=== PATIENT | male | born 1960 | race Caucasian/White ===

== ENCOUNTER → 2023-08-07 | Outpatient (CLI) | payer OTHER, SELFPAY ==
[2023-08-07 18:38] LABS: Anion Gap 5 (5-15); BUN 17 mg/dL (7-18); BUN/Creat Ratio 18.3 RATIO (10-20); Calcium,Total 9.2 mg/dL (8.5-10.1); Chloride 107 mmol/L (98-107); Cholesterol 154 mg/dL (200); Creatinine, Serum 0.93 mg/dL (0.70-1.30); EST Glomerular Filtration Rate 88 mL/min (>60); Est Glom Filt Rate - Afr Amer 106 mL/min (>60); Glucose 96 mg/dL (74-106); High Density Lipoprotein 46 mg/dL; PSA,Total - Annual Screen 1.83 ng/mL (0.00-4.00); Sodium Level 141 mmol/L (136-145); Triglycerides 180 mg/dL; Very Low Density Lipoprotein 36 mg/dL (5-40)
== END | disposition home or self-care (01) ==
LOC: MFPLAB 15:39
PROVIDERS: PCP Family Medicine; Visit Provider Family Medicine
DX: Z00.00 Encounter for general adult medical examination without abnormal findings (principal)
CPT/HCPCS: 36415; 80048; 80061; 84153; G0103

== ENCOUNTER → 2024-09-07 | Outpatient (CLI) | payer BC, SELFPAY ==
[2024-09-07 08:50] LABS: Anion Gap 11 (5-15); BUN 15 mg/dL (4-19); BUN/Creat Ratio 14.5 RATIO (10-20); Calcium,Total 9.4 mg/dL (7.6-11.0); Chloride 104 mmol/L (98-108); EST Glomerular Filtration Rate 85 (>60); Glucose 95 mg/dL (70-99); PSA,Total - Annual Screen 1.81 ng/mL (0.02-4.00); Potassium 4.1 mmol/L (3.3-5.1); Sodium Level 140 mmol/L (133-145)
== END | disposition home or self-care (01) ==
PROVIDERS: PCP Family Medicine
DX: Z00.00 Encounter for general adult medical examination without abnormal findings (principal)
CPT/HCPCS: 36415; 80048; 84153; G0103

== ENCOUNTER 2025-02-01 10:14 | Emergency (ER) | payer BC, SELFPAY ==
[2025-02-01 10:15] VITALS: BP 123/74; PULSE 87; RESP 18; TEMP 37.8; O2SAT 100; BMI 25.0
--- NOTE | 2025-02-01 10:27 | EDS_ITS ---
HPI History of Present Illness Chief Complaint: General Illness Informant: patient Onset/Context/Timing Onset: Today and Yesterday Context: Gradual Onset Timing: Continuous Current Severity: Mild Maximum Severity: Mild Narrative Narrative: 64-year-old male denies any significant past medical or surgical history. Does not take any chronic medications currently is on antibiotic for dental infection. States yesterday he started having nausea vomiting and diarrhea. No hematemesis. No dysuria. No melena. Came in today because he was concerned he was getting dehydrated because he has had at least 5 episodes of vomiting in the last 24 hours and 5 episodes of diarrhea. Prior similar symptoms: Yes Recent Illness/Hospitalization: No PFSH PFSH Medical History no medical history no medical history Home Medications ?Medication ?Instructions ?Recorded ?Last Taken ?Type ondansetron 4 mg disintegrating 4 mg PO Q6H PRN nausea and 02/01/25 Unknown Rx tablet vomiting #10 tabs Allergy/AdvReac Type Severity Reaction Status Date / Time No Known Allergies Allergy Verified 02/01/25 10:19 Social History Smoking Status: Never smoker ROS ROS ED ROS Narrative Nausea, vomiting and diarrhea. Denies dysuria. Denies abdominal pain. Constitutional Constitutional ED: Reports fever(s); Denies chills Eyes Eyes: Denies blurry vision ENT ENT ED: Denies ear pain Cardiovascular Cardiovascular: Denies chest pain Respiratory/Chest Respiratory/Chest: Denies cough Gastrointestinal Gastrointestinal: Reports diarrhea, nausea and vomiting; Denies abdominal pain, constipation or melena Genitourinary Genitourinary ED: Denies dysuria or hematuria Musculoskeletal Musculoskeletal: Denies arthralgias or back pain Integumentary Denies abscess Neurologic Neurologic: Denies headache(s) Psychiatric Psychiatric: Denies anxiety or depression Endocrine Endocrinology: Denies cold intolerance Hematologic/Lymphatic Hematologic/Lymphatic: Reports none Allergic/Immunologic Allergic/Immunologic ED: Denies mouth swelling, tongue swelling or urticaria EXAM Physical Exam Narrative Exam Narrative: Well-appearing 64-year-old male. Vital signs stable he does have a low-grade temperature 100.1. He does not look septic or toxic. He is in no distress. His pulse ox 100% on room air no hypoxia. H EENT exam pupils round reactive light. No trauma to his face or scalp. Mildly dry mucous membranes. Neck nontender no JVD. No lymphadenopathy. Back nontender. Lungs clear to auscultation bilaterally. Heart regular rhythm rate about 85 no murmur. Chest wall and ribs nontender. Abdomen soft, nontender, nondistended, normal bowel sounds without peritoneal signs. No localizing tenderness. No hernia or mass. No obstruction. Moving all 4 extremities. Nontender no deformity. Normal range of motion. Normal order processing clerk strength. Normal dorsi plantarflexion. Neurologically he is awake and alert. Answering questions following commands. Const Vital Signs: 02/01/25 10:15 02/01/25 12:04 02/01/25 14:00 Temperature 100.1 F H 102.3 F H Temperature Source Oral Oral Pulse Rate 87 80 60 Respiratory Rate 18 18 Blood Pressure 123/74 H 119/57 L 100/66 Blood Pressure Mean 90 77 77 Pulse Ox 100 100 Oxygen Delivery Method Room Air Positive well nourished and well developed; Negative for cachectic, contractures or unkempt General Appearance ED: well developed and NAD; Negative for unkempt, cachectic, contractures, cyanotic, diaphoretic or pallor Nutritional Appearance: Negative for cachectic HEENT Reports dry mucous membranes Mouth ED: Yes dry mucous membranes Mouth: dry mucous membranes Eyes PERRL and EOMs intact bilaterally General Eye ED: Negative for pale conjunctiva or scleral icterus Neck no lymphadenopathy, supple and no JVD Chest Wall inspection of chest normal and palpation of chest normal Resp normal respiratory effort and clear to auscultation bilaterally Cardio regular rate, regular rhythm, S1 normal heart sound, S2 normal heart sound and no murmurs GI normal to inspection, nondistended, normoactive bowel sounds, non-tender, non- distended and no masses Auscultation: normoactive bowel sounds Palpation: soft; Negative for tender, guarding or rebound tenderness present Back/Spine no CVA tenderness General Back: Negative for CVA tenderness Cervical Spine: Negative for cervical spine tenderness Thoracic Spine / Upper Back: Negative for thoracic spinal tenderness Lumbar Spine / Lower Back: Negative for lumbar spinal tenderness Extremity normal to inspection General Extremety ED: Negative for edema or tenderness General Extremity: Negative for edema Neuro oriented x3 and CN's II-XII intact bilaterally Sensorium / Orientation: alert Motor Exam: strength 5/5 throughout Psych mental status grossly normal Appearance: Negative for unkempt Skin no rashes or lesions noted, no wounds and skin turgor normal General Skin Exam: Negative for jaundice or pallor Lesions: No lesion noted Rashes: No rashes noted Trauma: Negative for abrasion MDM MDM MDM Narrative Medical decision making narrative: 64-year-old male with nausea, vomiting and diarrhea suspect viral gastroenteritis. He will be treated with IV fluids for hydration. Screening labs. He does not need any imaging he is got no abdominal tenderness or pain. Repeat exam patient is doing well 12:56 PM. He did develop a fever here of 102.3. He has been treated with Tylenol. I suspect he has a viral gastroenteritis. His abdomen remains benign. Patient states he is feeling better. Initially was able to drink fluids then the nurse gave him Tylenol for his fever he threw that up soaring give him additional dose of Zofran another p.o. challenge and see if he can hold down fluids and treated as a viral gastroenteritis. Currently his abdomen is completely nontender. Repeat exam patient is doing well at 2:48 PM. He did pass a p.o. challenge. His abdomen remains benign. He is comfortable being discharged home. Treated as a viral gastroenteritis. Fluids and rest. Zofran. Motrin and Tylenol. History & Record Review Discussion w/independent historian: Patient Additional record(s) reviewed:: Prior inpatient record, Prior outpatient record, Prior ED visit and Prior labs Lab Data Attestation: I reviewed the patient's lab results. Lab results narrative: CBC is normal. White count of 9. H&H 14 and 41. Platelets 250. Chemistry shows sodium 130. Gap 13. BUN and creatinine of 21.3. Glucose 121. Liver enzymes unremarkable. Alcohol negative. Labs: Laboratory Results - last 24 hr 02/01/25 10:35 WBC 9.8 RBC 4.68 Hgb 14.4 Hct 41.0 MCV 87.6 MCH 30.8 MCHC 35.1 RDW Std Deviation 37.8 RDW Coeff of Becky 11.8 Plt Count 250 MPV 9.8 Immature Gran % (Auto) 0.500 Neut % (Auto) 74.6 H Lymph % (Auto) 13.1 L [place] % (Auto) 9.1 Eos % (Auto) 2.2 Baso % (Auto) 0.5 Absolute Neuts (auto) 7.3 Absolute Lymphs (auto) 1.29 Nucleated RBC % 0 Sodium 130 L Potassium 3.9 Chloride 95 L Carbon Dioxide 21.3 Anion Gap 13 BUN 20 H Creatinine 1.30 H Estim Creat Clear Calc 51.25 Est GFR (MDRD) Non-Af 62 BUN/Creatinine Ratio 15.0 Glucose 121 H Calcium 8.6 Total Bilirubin 0.85 AST 28 ALT 21 Alkaline Phosphatase 47 Total Protein 6.9 Albumin 3.9 Globulin 3.0 Albumin/Globulin Ratio 1.3 Ethyl Alcohol < 10.1 Discharge Plan Triage Chief Complaint: General Illness Other Complaint: Nausea/Vomiting/Diarrhea ED Provider: Prosper Adams Dx/Rx/DC Orders Clinical Impression: Viral gastroenteritis, Fever, Acute hyponatremia Instructions: ED Fever Control (Adult), ED Gastroenteritis, Viral (Adult) Prescriptions: New ondansetron 4 mg tablet,disintegrating 4 mg PO Q6H PRN (Reason: nausea and vomiting) Qty: 10 0RF Primary Care Provider: Hector Burgess NP Referrals: Tiera Collazo MD [Med Staff - Provider Contracting Consultant] - 1-2 Days if not improving Activity Restrictions/Additional Instructions: Plenty of fluids and rest. Slowly increase your diet as tolerated. Tylenol and/or Motrin for any fever. Zofran as needed for nausea which you may swallow or let it dissolve under your tongue. Follow-up with your doctor if not improving. Return to the emergency department if you are feeling worse or unable to keep fluids down. Print Language: Mongolian Disposition Disposition: Home, Self Care
[2025-02-01] MEDS: 0.9% Normal Saline (1000mL) 1,000 ML 999 ML IV (10:36)
--- OUTSIDE RECORDS SUMMARY | 2025-02-01 10:36 | XMS RPT_ITS | CCD ---
Author Organization [facility] Care Team Providers Care Systematic Theology Professor Name Role Phone Vale TATUM, Dr. Tiera Bailey Primary Care Provider [phone] Arcadioorrdamaso ACCOUNTING OFFICER-C, Hector Attending Provider Aditya ACCOUNTING OFFICER-C, Hector Referring Provider [phone] Tiera Collazo Primary Care Unavailable Aditya ACCOUNTING OFFICER, Hector Referring Unavailable [facility]ING OFFIC[facility], Hector Attending Unavailable Meghna ACCOUNTING OFFICER, Urvashi Attending Unavailable Tiera Collazo Primary Care Unavailable Meghna ACCOUNTING OFFICER, Urvashi Referring Unavailable Results Test Name Value Interpretation Reference Range Facility Anion gap in Serum or Plasma Ordered By: Hector Burgess on 09-07-2024 Anion gap [Moles/Vol] 11 mmol/L 11-07 [facility] BUN/creatinine ratioOrdered By: Hector Burgess on 09-07-2024 Urea nitrogen/Creatinine [Mass ratio] 14.5 mg/mg 04-14 [facility] Basic Metabolic Profile (BMP )on 09-07-2024 BUN/CRE 14.5 RATIO Normal 04-14 [facility] Comment on above: Order Comment: Order Date: 08/19/24 Order Info: 0667- - BMP Order Info: 28512-24 - PSA Performed By: #### L 500.2500 #### [facility] [address], [place], [address] Calcium [Mass/Vol] 9.4 mg/dL Normal 7.6-11.0 [facility] Comment on above: Order Comment: Order Date: 08/19/24 Order Info: 0667- - BMP Order Info: 28512-24 - PSA Performed By: #### L 500.2500 #### [facility] [address] [place], [address] [phone] Chloride [Moles/Vol] 104 mmol/L Normal 98-108 [facility] Comment on above: Order Comment: Order Date: 08/19/24 Order Info: 666-06 - BMP Order Info: 2856-06 - PSA Performed By: #### L 500.2500 #### [facility] [address] [place], [place], [address] [phone] CO2 [Moles/Vol] 25.0 mmol/L Normal 21.0-32.0 [facility] Comment on above: Order Comment: Order Date: 08/19/24 Order Info: 666-06 - BMP Order Info: 2856-06 - PSA Performed By: #### L 500.2500 #### [facility] [address] [place], [place], [address] [phone] Creatinine [Mass/Vol] 1.00 mg/dL Normal 0.70-1.20 [facility] Comment on above: Order Comment: Order Date: 08/19/24 Order Info: 666-06 - BMP Order Info: 28512-24 - PSA Performed By: #### L 500.2500 #### [facility] [address] [place], [address] GAP 11 Normal 5-15 [facility] Comment on above: Order Comment: Order Date: 08/19/24 Order Info: 666-06 - BMP Order Info: 28512-24 - PSA Performed By: #### L 500.2500 #### [facility] [address] [place], [place], [address] [phone] GFR/1.73 sq M.predicted among non-blacks MDRD (S/P/Bld) [Vol rate/Area] 85 mL/min/{1.73_m2} Normal >60 [facility] Comment on above: Order Comment: Order Date: 08/19/24 Order Info: 666-06 - BMP Order Info: 2856- - PSA Result Comment: mL/m in/1.73m2 CKD-EPI Creatinine Equation (2020) Performed By: #### L 500.2500 #### [facility] [address] [place], [address] Glucose [Mass/Vol] 95 mg/dL Normal 70-99 [facility] Comment on above: Order Comment: Order Date: 08/19/24 Order Info: 06 - BMP Order Info: 2856-06 - PSA Performed By: #### L 500.2500 #### [facility] [address] [place], [address] Potassium [Moles/Vol] 4.1 mmol/L Normal 3.3-5.1 [facility] Comment on above: Order Comment: Order Date: 08/19/24 Order Info: 666-06 - BMP Order Info: 2856-06 - PSA Performed By: #### L 500.2500 #### [facility] [address] [place], [address] Sodium [Moles/Vol] 140 mmol/L Normal 133-145 [facility] Comment on above: Order Comment: Order Date: 08/19/24 Order Info: 666-06 - BMP Order Info: 2856-06 - PSA Performed By: #### L 500.2500 #### [facility] [address] [place], [address] Urea nitrogen [Mass/Vol] 15 mg/dL Normal 4-19 [facility] Comment on above: Order Comment: Order Date: 08/19/24 Order Info: 06 - BMP Order Info: 2856-06 - PSA Performed By: #### L 500.2500 #### [facility] [address] [place], [address] Carbon dioxide, total [Moles /volume] in Central venous bloodOrdered By: Hector McMorrow on 09-07-2024 CO2 [Moles/Vol] 25.0 mmol/L 21.0-32.0 [facility] Chloride assayOrdered By: An gel McMorrow on 09-07-2024 Chloride [Moles/Vol] 104 mmol/L 98-108 [facility] GFR/1.73 sq M.predicted chris g non-blacks MDRD (S/P/Bld) [Vol rate/Area]Ordered By: Hector Supriyadamaso on 09-07-2024 Estimated GFR (MDRD) Non-Af Amer 85 >60 [facility] Comment on above: mL/min/1.73m2 CKD-EP I Creatinine Equation (2020) PSA, total screeningOrdered By: Hector Burgess on 09-07-2024 Prostate Specific Antigen Screen 1.81 ng/mL 0.02-4.00 [facility] Comment on above: This test was perfor med using the [employer] tPSA method. Measured values of a patient sample can vary depending on the testing procedure used. PSA values determined on patient samples by different testing procedures cannot be used interchangeably. If there is a change in PSA assays while monitoring therapy, sequential testing should be performed to confirm baseline values. PSA,Total - Annual Screenon 09-07-2024 PSA,TOT SCREEN 1.81 ng/mL Normal 0.02-4.00 [facility] Comment on above: Order Comment: Order Date: 08/19/24 Order Info: 0667-1 - BMP Order Info: 2857-1 - PSA Result Comment: This test was performed using the [employer] tPSA method. Measured values of a patient??sample can vary depending on the testing procedure used. PSA values determined on patient samples by different testing procedures cannot be used interchangeably. If there is a change in PSA assays while monitoring therapy, sequential testing should be performed to confirm baseline values. Performed By: #### L 501.9910 #### [facility] [address] [place], [address] Potassium (Unsp spec) [Mass/ Vol]Ordered By: Hector Burgess on 09-07-2024 Potassium [Moles/Vol] 4.1 mmol/L 3.3-5.1 [facility] Serum creatinine measurement (mass/volume)Ordered By: Hector Burgess on 09-07-2024 Creatinine [Mass/Vol] 1.00 mg/dL 0.70-1.20 [facility] Serum glucose measurement (m ass/volume)Ordered By: Hector Arcadiomary kay on 09-07-2024 Glucose [Mass/Vol] 95 mg/dL 70-99 [facility] Serum or plasma calcium hafsa urement (mass/volume)Ordered By: Hector on 09-07-2024 Calcium [Mass/Vol] 9.4 mg/dL 7.6-11.0 [facility] Serum or plasma urea nitroge n measurement (mass/volume)Ordered By: Hector damaso on 09-07-2024 Urea nitrogen [Mass/Vol] 15 mg/dL 4-19 [facility] Sodium levelOrdered By: Petra daniel on 09-07-2024 Sodium [Moles/Vol] 140 mmol/L 133-145 [facility] Basophil percentageOrdered B y: Tiera Collazo on 08-07-2023 Chloride [Moles/Vol] 107 mmol/L 98-107 [facility] Cholesterol [Mass/Vol] 154 mg/dL <200 [facility] Comment on above: <200 mg/dL Desirable 200-240 mg/dL Borderline >240 mg/dL High Risk Glucose [Mass/Vol] 96 mg/dL 74-106 [facility] Potassium [Moles/Vol] 4.0 mmol/L 3.5-5.1 [facility] Sodium [Moles/Vol] 141 mmol/L 136-145 [facility] Triglyceride [Mass/Vol] 180 mg/dL <199 [facility] Comment on above: The drugs N-Acetylcy steine and Metamizole may falsely depress this assay.Serum Triglycerides Reference Interval Normal <150 mg/dL Borderline high 150 - 199 mg/dL High 200 - 499 mg/dL Very High > or = 500 mg/dL Laboratory - Chemistry and C hemistry - challengeOrdered By: Tiera Collazo on 08-07-2023 Cholesterol in HDL [Mass/Vol] 46 mg/dL >40 [facility] Comment on above: The drugs N-Acetylcy steine and Metamizole may falsely depress this assay. Reference Range HDL <40 mg/dL Low HDL Cholesterol HDL >or= 60 mg/dL High HDL Cholesterol Cholesterol in LDL [Mass/Vol] 72 mg/dL 0-130 [facility] CO2 [Moles/Vol] 29.0 mmol/L 21.0-32.0 [facility] Urea nitrogen/Creatinine [Mass ratio] 18.3 mg/mg 10-20 [facility] No Panel InformationOrdered By: Tiera Collazo on 08-07-2023 Estimated GFR (MDRD) Amer 106 mL/min >60 [facility] Comment on above: GFR Calc Estimated GFR (MDRD) Non-Af Amer 88 mL/min >60 [facility] Comment on above: Non- GFR Calc Prostate Specific Antigen Screen 1.83 ng/mL 0.00-4.00 [facility] Comment on above: This test was perfor med using the TPSA assay method for [employer] chemistry system. Values obtained with differentassay methods cannot be used interchangably.When changing PSA assays in the course of monitoring apatient, additional sequential testing should be carriedout to confirm baseline values. VLDL Cholesterol 36 mg/dL 5-40 [facility] Serum or plasma calcium hafsa urement (mass/volume)Ordered By: Tiera Collazo on 08-07-2023 Calcium [Mass/Vol] 9.2 mg/dL 8.5-10.1 [facility] Serum or plasma creatinine m easurement (mass/volume)Ordered By: Tiera Collazo on 08-07-2023 Creatinine [Mass/Vol] 0.93 mg/dL 0.70-1.30 [facility] Comment on above: The validity of the calculated GFR & GFRAA in patients over 70 years has not been determined. Clinical correlation is essential. Serum or plasma urea nitroge n measurement (mass/volume)Ordered By: Tiera Collazo on 08-07-2023 Urea nitrogen [Mass/Vol] 17 mg/dL 7-18 [facility] Thin prep Papanicolaou smear with manual screeningOrdered By: Tiera Collazo on 08-07-2023 Thin prep Papanicolaou smear with manual screening 5 5-15 [facility] Encounters Encounter Date Encounter Type Care Provider Facility Start: 10-14-2024 ambulatory Urvashi Coffman NP Facil ity:[facility] Start: 09-17-2024 Encounter for genera l adult medical examination without abnormal findings Hector Ervinorrow IBETH [facility] Start: 09-07-2024 End: 09-07-[address] Tiera Collazo MD Work Phone: [facility] Work Phone: Start: 09-07-2024 End: 09-07-2024 Patient encounter procedure Hector Burgess ACCOUNTING OFFICER-C -Laboratory Work Phone: Start: 09-07-2024 End: 09-07-2024 ambulatory Tiera Collazo Facility:[facility] Start: 08-07-2023 End: 08-07-2023 ambulatory [facility] Work Phone: Start: 08-07-2023 End: 08-07-2023 Patient encounter procedure [facility], [facility] Payers Date Payer Category Payer Self-pay 2024 Unknown [id number] Unknown [facility] [id number] Unknown [id number] Unknown [id number] Social History Date Type [facility]ail [facility] Work Phone: Start: 1960 Sex Assigned At Male [facility] Work Phone: Start: 09-17-2024 Sex Male (finding) [facility] Evaluation note Note Date & Type Note Facility Evaluation note No assessment information availa ble [facility] Work Phone: Reason for referral (narrative) Note Date & Type Note Facility Reason for referral (narrative) No reason for referral information available [facility] Work Phone: Chief Complaint and Reason for Visit Chief Complaint Admit Date EORDERS September 07, 2024 7:0 6am Summary Purpose Family History No Family History Records Found Advance Directives No Advanced Directives Records Found Additional Source Comments Care Teams (unrecognized sec tion and content) Team Status: Active Member Role Status Dates Dr. Tiera Collazo MD Primary Care Provider Active Team Status: Inactive Member Role Status Dates Dr. Tiera Collazo MD Primary Care Provider, Attendin g Provider Active Team Status: Inactive Member Role Status Dates Dr. Tiera Collazo MD Primary Care Provider Active Start: September 07, 2024 End: September 07, 2024 Hector Burgess ACCOUNTING OFFICER, ACCOUNTING OFFICER-C Attending Provider Active Start: September 07, 2024 End: September 07, 2024 Hector Burgess ACCOUNTING OFFICER, ACCOUNTING OFFICER-C Referring Provider Active Start: September 07, 2024 End: September 07, 2024 Goals (unrecognized section and content) Goals may be documented in a n alternate sectionGoals may be documented in an alternate section (unrecognized sect ion and content) No Status Records Found INFORMATION SOURCE (unrecogn ized section and content) DATE CREATED AUTHOR 10/13/2024 [facility] FOR RECORDS PERTAINING TO PATIENTS WHO ARE OR HAVE BEEN ENROLLED IN A CHEMICAL DEPENDENCY/SUBSTANCEABUSE PROGRAM, SOME INFORMATION MAY BE OMITTED. This clinical summary was aggregated from multiple sources. Caution should be exercised in using it in the provision of clinical care. This summary normalizes information from multiple sources, and as a consequence, information in this document may materially change the coding, format and clinical context of patient data. In addition, data may be omitted in some cases. CLINICAL DECISIONS SHOULD BE BASED ON THE PRIMARY CLINICAL RECORDS. [facility] [employer] provides no warranty or guarantee of the accuracy or completeness of information in this document.
[2025-02-01 10:47] LABS: Hematocrit 41.0 % (40-54); Hemoglobin 14.4 g/dL (13.0-16.5); Immature Granulocytes Count 0.050 X10^3/uL (0.0-0.0); Mean Corp Hgb Conc 35.1 g/dL (32-36); Mean Corpuscular Volume 87.6 fL (80-94); Mean Platelet Vol. 9.8 fl (6.2-12.0); NRBC Flagged by Analyzer 0 % (0-5); Platelet Count 250 K/mm3 (150-450); RBC Distribution Width CV 11.8 % (11.6-14.6); RBC Distribution Width SD 37.8 fl (35.1-43.9); Red Blood Count 4.68 M/mm3 (4.6-6.2); White Blood Count 9.8 K/mm3 (4.4-11.0)
[2025-02-01 11:14] LABS: Alcohol, Blood (Medical)-Serum < 10.1 mg/dL (<=10.0)
[2025-02-01 11:15] LABS: AST(SGOT) 28 U/L (<=37); Alanine Aminotransfer ALT/SGPT 21 U/L (<=46); Albumin, Serum 3.9 g/dL (3.4-4.8); Alkaline Phosphatase 47 U/L (40-129); Anion Gap 13 (5-15); BUN 20 mg/dL (4-19); BUN/Creat Ratio 15.0 RATIO (10-20); Calcium,Total 8.6 mg/dL (7.6-11.0); Carbon Dioxide 21.3 mmol/L (21.0-32.0); Chloride 95 mmol/L (98-108); Estimated Creatinine Clearance 51.25 ml/min (50-250); Globulin 3.0 g/dL (2.2-4.2); Glucose 121 mg/dL (70-99); Potassium 3.9 mmol/L (3.3-5.1)
[2025-02-01 12:04] VITALS: BP 119/57; PULSE 80; TEMP 39.1; O2SAT 100
[2025-02-01] MEDS: Ketorolac 30 MG/ML Syringe IV (13:16)
[2025-02-01 14:00] VITALS: BP 100/66; PULSE 60; RESP 18
[2025-02-01 15:10] VITALS: BP 100/66; PULSE 60; RESP 18; TEMP 36.6; O2SAT 100
== END 2025-02-01 15:10 | disposition home or self-care (01) ==
PROVIDERS: Emergency Provider Emergency Medicine; Visit Provider Emergency Medicine
DX: A08.4 Viral intestinal infection, unspecified (principal); E87.1 Hypo-osmolality and hyponatremia; R50.9 Fever, unspecified
CPT/HCPCS: 80053; 82077; 85025; 96361; 96374; 96375; 99284; A4216; J2405

== ENCOUNTER → 2025-02-06 | Outpatient (CLI) | payer BC, SELFPAY ==
[2025-02-06 15:14] LABS: Hematocrit 40.6 % (40-54); Hemoglobin 14.2 g/dL (13.0-16.5); Immature Granulocytes Count 0.040 X10^3/uL (0.0-0.0); Mean Corp Hgb Conc 35.0 g/dL (32-36); Mean Corpuscular Volume 88.6 fL (80-94); Mean Platelet Vol. 10.8 fl (6.2-12.0); NRBC Flagged by Analyzer 0 % (0-5); Platelet Count 366 K/mm3 (150-450); RBC Distribution Width CV 12.0 % (11.6-14.6); RBC Distribution Width SD 38.9 fl (35.1-43.9); Red Blood Count 4.58 M/mm3 (4.6-6.2); White Blood Count 8.0 K/mm3 (4.4-11.0)
[2025-02-06 15:59] LABS: Anion Gap 13 (5-15); BUN 13 mg/dL (4-19); BUN/Creat Ratio 13.0 RATIO (10-20); Calcium,Total 8.7 mg/dL (7.6-11.0); Carbon Dioxide 22.1 mmol/L (21.0-32.0); Chloride 98 mmol/L (98-108); Glucose 108 mg/dL (70-99); Potassium 4.5 mmol/L (3.3-5.1)
[2025-02-08 11:08] LABS: Lyme Scn Total Ab w/Rflx Negative (Negative)
== END | disposition home or self-care (01) ==
LOC: LAB 13:47
PROVIDERS: Referring Provider Family Medicine; Visit Provider Family Medicine
DX: R53.83 Other fatigue (principal)
CPT/HCPCS: 36415; 80048; 85025; 86618

== ENCOUNTER → 2025-02-12 | Outpatient (CLI) | payer BC, SELFPAY ==
[2025-02-12 16:19] LABS: Hematocrit 41.3 % (40-54); Hemoglobin 14.1 g/dL (13.0-16.5); Immature Granulocytes Count 0.040 X10^3/uL (0.0-0.0); Mean Corp Hgb Conc 34.1 g/dL (32-36); Mean Corpuscular Volume 90.0 fL (80-94); Mean Platelet Vol. 9.7 fl (6.2-12.0); NRBC Flagged by Analyzer 0 % (0-5); Platelet Count 455 K/mm3 (150-450); RBC Distribution Width CV 12.2 % (11.6-14.6); RBC Distribution Width SD 39.4 fl (35.1-43.9); Red Blood Count 4.59 M/mm3 (4.6-6.2); White Blood Count 8.3 K/mm3 (4.4-11.0)
== END | disposition home or self-care (01) ==
LOC: MTLAB 14:00
PROVIDERS: PCP Family Medicine; Referring Provider Family Medicine; Visit Provider Family Medicine
DX: R53.83 Other fatigue (principal)
CPT/HCPCS: 36415; 84403; 84443; 85025; 85652

== ENCOUNTER → 2025-03-29 | Outpatient (CLI) | payer BC, SELFPAY ==
--- OUTSIDE RECORDS SUMMARY | 2025-03-29 07:21 | XMS RPT_ITS | CCD ---
Author Organization [facility]iniSy[facility] Care Team Providers Care Citrus Peeler Name Role Phone Vale TATUM, Dr. Tiera Bailey Primary Care Provider [phone] [facility] DESTRUCTIVE TESTING TECHNICIAN-C, Hector Attending Provider Arcadioorrow NON DESTRUCTIVE TESTING TECHNICIAN-C, Hector Referring Provider [phone] Bryan TATUM, Dr. Cheng Emergency Provider [phone] [facility] NON DESTRUCTIVE TESTING TECHNICIAN-C, Hector Primary Care Provider [phone] Bryan TATUM, Dr. Cheng Attending Provider [phone] Kiesha TATUM, Dr. Todd Attending Provider Kiesha TATUM, Dr. Todd Referring Provider [phone] Kiesha TATUM, Dr. Todd Primary Care Provider [phone] Aditya, Hector Referring Unavailable Tiera Collazo Primary Care Unavailable Hector Burgess Attending Unavailable Prosper Adams Attending Unavailable Aditya, Hector Primary Care Unavailable Tiera Collazo Primary Care Unavailable Urvashi Coffman Attending Unavailable Urvashi Coffman Referring Unavailable Perez Pop Primary Care Unavailable Perez Pop Attending Unavailable Perez Ppo Referring Unavailable Perez Pop Attending Unavailable Perez Pop Referring Unavailable Arcadioorrdamaso, Hector Primary Care Unavailable Medications Current Medications Medication Drug Class(es) Dates Sig (Normalized) Sig (Original) ondansetron 4 mg disintegrating oral tablet (3 sources) Serotonin-3 Receptor Antagonist Start: 02-01-2025 take 1 tablet by mouth every six hours as needed for nausea and vomiting Ondansetron 4 mg tablet,disintegra ting Active 4 mg PO EVERY 6 HOURS as needed for nausea and vomiting 10 February 01, 2025 12:00am Problems Problem Classification Problem Date Documented Da te Episodic/Chronic Fever of unknown origin (3 sources) Fever; Translations: [Fever, unspecified] 02-01-2025 Episodic Fluid and electrolyte disorders (3 sources) Acute hyponatremia; Translations: [Hypo-osmolality and hyponatremia] 02-01-2025 Episodic Intestinal infection (3 sources) Viral gastroenteritis; Translations: [Viral intestinal infection, unspecified] 02-01-2025 Episodic Malaise and fatigue (1 source) Other fatigue; Translations: [Other fatigue] Onset: 02-18-2025 Episodic Residual codes; unclassified (1 source) Illness, unspecified; Translations: [Illness, unspecified] Onset: 02-05-2025 Episodic Results Test Name Value Interpretation Reference Range Facility Absolute lymphocyte countOrd ered By: Perez Pop on 02-12-2025 Lymphocytes Auto (Unsp spec) [#/Vol] 1.29 10*3/uL 0.83-4.51 [facility] Absolute neutrophil countOrd ered By: Perez Pop on 02-12-2025 Neutrophils (Bld) [#/Vol] 6.1 10*3/uL 2.0-7.7 [facility] Automated lymphocyte count a s percentage of total leukocytesOrdered By: Perez Pop on 02-12-2025 Lymphocytes/100 WBC Auto (Unsp spec) 15.6 % Low 19-41 [facility] Basophil percentageOrdered B y: Perez Pop on 02-12-2025 Basophils/100 WBC (Bld) 0.7 % 0-1 [facility] CBC W/Diff, Automatedon 01-25 Absolute Lymph 1.29 X10 3/uL Normal 0.83-4.51 [facility] Comment on above: Performed By: #### L 501.9520, L7000.5300, L100.0100, L101.9900, L509.3001 #### [facility] [address] [place], [address] Absolute Neut 6.1 X10 3/uL Normal 2.0-7.7 [facility] Comment on above: Performed By: #### L 501.9520, L7000.5300, L100.0100, L101.9900, L509.3001 #### [facility] [address] [place], [address] Basophils/100 WBC (Bld) 0.7 % Normal 0-1 [facility] Comment on above: Performed By: #### L 501.9520, L7000.5300, L100.0100, L101.9900, L509.3001 #### [facility] [address] [place], [address] Eosinophils/100 WBC (Bld) 1.6 % Normal 0-5 [facility] Comment on above: Performed By: #### L 501.9520, L7000.5300, L100.0100, L101.9900, L509.3001 #### [facility] [address] [place], [address] Erythrocyte distribution width (RBC) [Ratio] 12.2 % Normal 11.6-14.6 [facility] Comment on above: Performed By: #### L 501.9520, L7000.5300, L100.0100, L101.9900, L509.3001 #### [facility] [address] [place], [address] Hematocrit (Bld) [Volume fraction] 41.3 % Normal 40-54 [facility] Comment on above: Performed By: #### L 501.9520, L7000.5300, L100.0100, L101.9900, L509.3001 #### [facility] [address] [place], [address] Hemoglobin (Bld) [Mass/Vol] 14.1 g/dL Normal 13.0-16.5 [facility] Comment on above: Performed By: #### L 501.9520, L7000.5300, L100.0100, L101.9900, L509.3001 #### [facility] [address] [place], [address] IG% 0.500 Normal 0.0-0.9 [facility] Comment on above: Result Comment: IG% - Immature Granulocytes (promyelocytes, myelocytes and metamyelocytes) > 1% indicates that a LEFT SHIFT is Present. Performed By: #### L 501.9520, L7000.5300, L100.0100, L101.9900, L509.3001 #### [facility] [address] [place], [address] Lymphocytes/100 WBC (Bld) 15.6 % Low 19-41 [facility] Comment on above: Performed By: #### L 501.9520, L7000.5300, L100.0100, L101.9900, L509.3001 #### [facility] [address] [place], [address] MCH (RBC) [Entitic mass] 30.7 pg Normal 27.0-32.0 [facility] Comment on above: Performed By: #### L 501.9520, L7000.5300, L100.0100, L101.9900, L509.3001 #### [facility] [address] [place], [address] MCHC (RBC) [Mass/Vol] 34.1 g/dL Normal 32-36 [facility] Comment on above: Performed By: #### L 501.9520, L7000.5300, L100.0100, L101.9900, L509.3001 #### [facility] [address] [place], [address] MCV (RBC) [Entitic vol] 90.0 fL Normal 80-94 [facility] Comment on above: Performed By: #### L 501.9520, L7000.5300, L100.0100, L101.9900, L509.3001 #### [facility] [address] [place], [address] Monocytes/100 WBC (Bld) 8.1 % Normal 0-10 [facility] Comment on above: Performed By: #### L 501.9520, L7000.5300, L100.0100, L101.9900, L509.3001 #### [facility] [address] [place], [address] Neutrophils/100 WBC (Bld) 73.5 % High 47-70 [facility] Comment on above: Performed By: #### L 501.9520, L7000.5300, L100.0100, L101.9900, L509.3001 #### [facility] [address] [place], [address] Nucleated RBC (Bld) [#/Vol] 0 10*3/uL Normal 0-5 [facility] Comment on above: Performed By: #### L 501.9520, L7000.5300, L100.0100, L101.9900, L509.3001 #### [facility] [address] [place], [address] Platelet mean volume (Bld) [Entitic vol] 9.7 fL Normal 6.2-12.0 [facility] Comment on above: Performed By: #### L 501.9520, L7000.5300, L100.0100, L101.9900, L509.3001 #### [facility] [address] [place], [address] Platelets (Bld) [#/Vol] 455 10*3/uL High 150-450 [facility] Comment on above: Performed By: #### L 501.9520, L7000.5300, L100.0100, L101.9900, L509.3001 #### [facility] [address] [place], [address] RBC (Bld) [#/Vol] 4.59 10*6/uL Low 4.6-6.2 [facility] Comment on above: Performed By: #### L 501.9520, L7000.5300, L100.0100, L101.9900, L509.3001 #### [facility] [address] [place], [address] RDW SD 39.4 fl Normal 35.1-43.9 [facility] Comment on above: Performed By: #### L 501.9520, L7000.5300, L100.0100, L101.9900, L509.3001 #### [facility] [address] [place], [address] WBC (Bld) [#/Vol] 8.3 10*3/uL Normal 4.4-11.0 [facility] Comment on above: Performed By: #### L 501.9520, L7000.5300, L100.0100, L101.9900, L509.3001 #### [facility] [address] [place], [address] Eosinophil percentageOrdered By: Perez Pop on 02-12-2025 Eosinophils/100 WBC (Bld) 1.6 % 0-5 [facility] Erythrocyte Sed Rateon 02-12 SED RATE 2 mm/hr Normal 0-20 [facility] Comment on above: Performed By: #### L 501.9520, L7000.5300, L100.0100, L101.9900, L509.3001 #### [facility] [address] [place], [address] Erythrocyte distribution wid th ratioOrdered By: Perez Pop on 02-12-2025 Erythrocyte distribution width (RBC) [Ratio] 12.2 % 11.6-14.6 [facility] Erythrocyte distribution wid th standard deviationOrdered By: Perez Pop on 02-12-2025 Erythrocyte distribution width (RBC) [Ratio] 39.4 fl 35.1-43.9 [facility] Erythrocyte sedimentation ra teOrdered By: Perez Pop on 02-12-2025 ESR (Bld) [Velocity] 2 mm/h 0-20 [facility] Hematocrit Auto (Bld) [Volum e fraction]Ordered By: Perez Pop on 02-12-2025 Hematocrit (Bld) [Volume fraction] 41.3 % 40-54 [facility] Hemoglobin measurementOrdere d By: Perez Pop on 02-12-2025 Hemoglobin (Bld) [Mass/Vol] 14.1 g/dL 13.0-16.5 [facility] Immature granulocytes/100 WB C Auto (Bld)Ordered By: Perez Pop on 02-12-2025 Immature granulocytes/100 WBC (Bld) 0.500 % 0.0-0.9 [facility] Comment on above: IG% - Immature Granu locytes (promyelocytes, myelocytes and metamyelocytes) > 1% indicates that a LEFT SHIFT is Present. L509.3001on 02-12-2025 Testosterone [Mass/Vol] 115.00 ng/dL Low 300-720 [facility] Comment on above: Performed By: #### L 501.9520, L7000.5300, L100.0100, L101.9900, L509.3001 #### [facility] [address] [place], [place], [id number] Laboratory - Chemistry and C hemistry - challengeOrdered By: Perez Pop on 02-12-2025 Testosterone [Mass/Vol] 115.00 ng/dL Low 300-720 [facility] Lyme Screen W/Reflex WBon LYME SCREEN Ab REF LAB Normal [facility] Comment on above: Result Comment: TEST S WERE COMPLETED ON 02/06 - GE Performed By: #### L 501.9520, L7000.5300, L100.0100, L101.9900, L509.3001 #### [facility] [address] [place], [place], [id number] MCV (mean corpuscular volume ) determinationOrdered By: Perez Pop on 02-12-2025 MCV (RBC) [Entitic vol] 90.0 fL 80-94 [facility] Mean corpuscular hemoglobin (MCH) determinationOrdered By: Perez Pop on 02-12-2025 MCH (RBC) [Entitic mass] 30.7 pg 27.0-32.0 [facility] Mean corpuscular hemoglobin concentration (MCHC) determinationOrdered By: Perez Pop on 02-12-2025 MCHC (RBC) [Mass/Vol] 34.1 g/dL 32-36 [facility] Mean platelet volume determi nationOrdered By: Perez Pop on 02-12-2025 Platelet mean volume (Bld) [Entitic vol] 9.7 fL 6.2-12.0 [facility] Monocyte percentageOrdered B y: Perez Pop on 02-12-2025 Monocytes/100 WBC (Bld) 8.1 % 0-10 [facility] Neutrophil percentageOrdered By: Perez Pop on 02-12-2025 Neutrophils/100 WBC (Bld) 73.5 % High 47-70 [facility] Nucleated red blood cell per centageOrdered By: Perez Pop on 02-12-2025 Nucleated RBC/100 WBC (Bld) [Ratio] 0 % 0-5 [facility] Platelet countOrdered By: Conor Pop on 02-12-2025 Platelets (Bld) [#/Vol] 455 10*3/uL High 150-450 [facility] RBC Auto (Bld) [#/Vol]Ordere d By: Perez Pop on 02-12-2025 RBC (Bld) [#/Vol] 4.59 10*6/uL Low 4.6-6.2 [facility] TSH DL <= 0.005 mIU/L QnOrde red By: Perez Pop on 02-12-2025 TSH Qn 1.240 uIU/mL 0.300-4.200 [facility] Thyroid Stim Hormone (TSH)on 02-12-2025 TSH 1.240 uIU/mL Normal 0.300-4.200 [facility] Comment on above: Performed By: #### L 501.9520, L7000.5300, L100.0100, L101.9900, L509.3001 #### [facility] [place], [address] White blood cell (WBC) count Ordered By: Perez Pop on 02-12-2025 WBC (Bld) [#/Vol] 8.3 10*3/uL 4.4-11.0 [facility] Lyme Screen W/Reflex WBon LYME SCREEN Ab Negative Normal Negative [facility] Comment on above: Order Comment: Order Date: 08/19/24 Order Info: 0667-1 - BMP Order Info: 2857-1 - PSA Result Comment: Lyme antibodies not detected. Reflex testing is not indicated. No laboratory evidence of infection with B. burgdorferi (Lyme disease). Negative results may occur in patients recently infected (less than or equal to 14 days) with B. burgdorferi. If recent infection is suspected, repeat testing on a new sample collected in 7 to 14 days is recommended. Performed at: [facility] [address] [id number] Biomass Technician: Joel Ritchie PhD, Phone: [phone] Performed By: #### L 501.9910 #### [facility] [address] [place] [address]. [place], [address] Absolute lymphocyte countOrd ered By: Perez Pop on 2025 Lymphocytes Auto (Unsp spec) [#/Vol] 1.06 10*3/uL 0.83-4.51 [facility] Absolute neutrophil countOrd ered By: Perez Pop on 2025 Neutrophils (Bld) [#/Vol] 6.1 10*3/uL 2.0-7.7 [facility] Anion gap in Serum or Plasma Ordered By: Perez Pop on 2025 Anion gap [Moles/Vol] 13 mmol/L 5-15 [facility] Automated lymphocyte count a s percentage of total leukocytesOrdered By: Perez Pop on 2025 Lymphocytes/100 WBC Auto (Unsp spec) 13.3 % Low 19-41 [facility] BUN/creatinine ratioOrdered By: Perez Pop on 2025 Urea nitrogen/Creatinine [Mass ratio] 13.0 mg/mg 10- [facility] Basic Metabolic Profile (BMP )on 2025 BUN/CRE 13.0 RATIO Normal 10-20 [facility] Comment on above: Order Comment: Order Date: 08/19/24 Order Info: 0667-1 - BMP Order Info: 28512-24 - PSA Performed By: #### L 501.9910 #### [facility] [address] [place], [address] Calcium [Mass/Vol] 8.7 mg/dL Normal 7.6-11.0 [facility] Comment on above: Order Comment: Order Date: 08/19/24 Order Info: 06- - BMP Order Info: 28512-24 - PSA Performed By: #### L 501.9910 #### [facility] [address] [place], [address] Chloride [Moles/Vol] 98 mmol/L Normal 98-108 [facility] Comment on above: Order Comment: Order Date: 08/19/24 Order Info: 06- - BMP Order Info: 28512-24 - PSA Performed By: #### L 501.9910 #### [facility] [address] [place], [address] CO2 [Moles/Vol] 22.1 mmol/L Normal 21.0-32.0 [facility] Comment on above: Order Comment: Order Date: 08/19/24 Order Info: 0667- - BMP Order Info: 28512-24 - PSA Performed By: #### L 501.9910 #### [facility] [address] [place], [address] Creatinine [Mass/Vol] 1.00 mg/dL Normal 0.70-1.20 [facility] Comment on above: Order Comment: Order Date: 08/19/24 Order Info: 0667-1 - BMP Order Info: 28512-24 - PSA Performed By: #### L 501.9910 #### [facility] [address] [place], [address] GAP 13 Normal 5-15 [facility] Comment on above: Order Comment: Order Date: 08/19/24 Order Info: 666-06 - BMP Order Info: 2856-06 - PSA Performed By: #### L 501.9910 #### [facility] [address] [place], [address] GFR/1.73 sq M.predicted among non-blacks MDRD (S/P/Bld) [Vol rate/Area] 85 mL/min/{1.73_m2} Normal >60 [facility] Comment on above: Order Comment: Order Date: 08/19/24 Order Info: 666-06 - BMP Order Info: 2856-06 - PSA Result Comment: mL/m in/1.73m2 CKD-EPI Creatinine Equation (2020) Performed By: #### L 501.9910 #### [facility] [address] [place], [address] Glucose [Mass/Vol] 108 mg/dL High 70-99 [facility] Comment on above: Order Comment: Order Date: 08/19/24 Order Info: 666-06 - BMP Order Info: 2856-06 - PSA Performed By: #### L 501.9910 #### [facility] [address] [place], [address] Potassium [Moles/Vol] 4.5 mmol/L Normal 3.3-5.1 [facility] Comment on above: Order Comment: Order Date: 08/19/24 Order Info: 666-06 - BMP Order Info: 2856-06 - PSA Performed By: #### L 501.9910 #### [facility] [address] [place], [address] Sodium [Moles/Vol] 134 mmol/L Normal 133-145 [facility] Comment on above: Order Comment: Order Date: 08/19/24 Order Info: 06 - BMP Order Info: 2856-06 - PSA Performed By: #### L 501.9910 #### [facility] [address] [place], [place], [address] Urea nitrogen [Mass/Vol] 13 mg/dL Normal 4-19 [facility] Comment on above: Order Comment: Order Date: 08/19/24 Order Info: 666-06 - BMP Order Info: 28512-24 - PSA Performed By: #### L 501.9910 #### [facility] [address] [place], [place], [address] [phone] Basophil percentageOrdered B y: Perez Pop on 2025 Basophils/100 WBC (Bld) 0.9 % 0-1 [facility] CBC W/Diff, Automatedon 01-24 Absolute Lymph 1.06 X10 3/uL Normal 0.83-4.51 [facility] Comment on above: Order Comment: Order Date: 08/19/24 Order Info: 666-06 - BMP Order Info: 28512-24 - PSA Performed By: #### L 501.9910 #### [facility] [address] [place], [address] Absolute Neut 6.1 X10 3/uL Normal 2.0-7.7 [facility] Comment on above: Order Comment: Order Date: 08/19/24 Order Info: 666-06 - BMP Order Info: 28512-24 - PSA Performed By: #### L 501.9910 #### [facility] [address] [place], [address] Basophils/100 WBC (Bld) 0.9 % Normal 0-1 [facility] Comment on above: Order Comment: Order Date: 08/19/24 Order Info: 06 - BMP Order Info: 28512-24 - PSA Performed By: #### L 501.9910 #### [facility] [address] [place], [address] Eosinophils/100 WBC (Bld) 1.3 % Normal 0-5 [facility] Comment on above: Order Comment: Order Date: 08/19/24 Order Info: 666-06 - BMP Order Info: 2856-06 - PSA Performed By: #### L 501.9910 #### [facility] [address] [place], [phone] Erythrocyte distribution width (RBC) [Ratio] 12.0 % Normal 11.6-14.6 [facility] Comment on above: Order Comment: Order Date: 08/19/24 Order Info: 06 - BMP Order Info: 2856-06 - PSA Performed By: #### L 501.9910 #### [facility] [address] [place], [address] Hematocrit (Bld) [Volume fraction] 40.6 % Normal 40-54 [facility] Comment on above: Order Comment: Order Date: 08/19/24 Order Info: 666-06 - BMP Order Info: 2856-06 - PSA Performed By: #### L 501.9910 #### [facility] [address] [place], [address] Hemoglobin (Bld) [Mass/Vol] 14.2 g/dL Normal 13.0-16.5 [facility] Comment on above: Order Comment: Order Date: 08/19/24 Order Info: 06 - BMP Order Info: 2856-06 - PSA Performed By: #### L 501.9910 #### [facility] [address] [place], [id number] ([address] IG% 0.500 Normal 0.0-0.9 [facility] Comment on above: Order Comment: Order Date: 08/19/24 Order Info: 06671 - BMP Order Info: 28512-24 - PSA Result Comment: IG% - Immature Granulocytes (promyelocytes, myelocytes and metamyelocytes) > 1% indicates that a LEFT SHIFT is Present. Performed By: #### L 501.9910 #### [facility] [address] [place], [address] Lymphocytes/100 WBC (Bld) 13.3 % Low 19-41 [facility] Comment on above: Order Comment: Order Date: 08/19/24 Order Info: 666-06 - BMP Order Info: 2856-06 - PSA Performed By: #### L 501.9910 #### [facility] [address] [place], [address] MCH (RBC) [Entitic mass] 31.0 pg Normal 27.0-32.0 [facility] Comment on above: Order Comment: Order Date: 08/19/24 Order Info: 666-06 - BMP Order Info: 2856-06 - PSA Performed By: #### L 501.9910 #### [facility] [address] [place], [address] MCHC (RBC) [Mass/Vol] 35.0 g/dL Normal 32-36 [facility] Comment on above: Order Comment: Order Date: 08/19/24 Order Info: 666-06 - BMP Order Info: 2856-06 - PSA Performed By: #### L 501.9910 #### [facility] [address] [place], [address] MCV (RBC) [Entitic vol] 88.6 fL Normal 80-94 [facility] Comment on above: Order Comment: Order Date: 08/19/24 Order Info: 666-06 - BMP Order Info: 28512-24 - PSA Performed By: #### L 501.9910 #### [facility] [address] [place], [address] Monocytes/100 WBC (Bld) 7.7 % Normal 0-10 [facility] Comment on above: Order Comment: Order Date: 08/19/24 Order Info: 666-06 - BMP Order Info: 28512-24 - PSA Performed By: #### L 501.9910 #### [facility] [address] [place], [address] Neutrophils/100 WBC (Bld) 76.3 % High 47-70 [facility] Comment on above: Order Comment: Order Date: 08/19/24 Order Info: 0667-1 - BMP Order Info: 2856-06 - PSA Performed By: #### L 501.9910 #### [facility] [address] [place], [address] Nucleated RBC (Bld) [#/Vol] 0 10*3/uL Normal 0-5 [facility] Comment on above: Order Comment: Order Date: 08/19/24 Order Info: 666-06 - BMP Order Info: 2856-06 - PSA Performed By: #### L 501.9910 #### [facility] [address] [place], [address] Platelet mean volume (Bld) [Entitic vol] 10.8 fL Normal 6.2-12.0 [facility] Comment on above: Order Comment: Order Date: 08/19/24 Order Info: 666-06 - BMP Order Info: 2856-06 - PSA Performed By: #### L 501.9910 #### [facility] [address] [place], [address] Platelets (Bld) [#/Vol] 366 10*3/uL Normal 150-450 [facility] Comment on above: Order Comment: Order Date: 08/19/24 Order Info: 06 - BMP Order Info: 2856-06 - PSA Performed By: #### L 501.9910 #### [facility] [address] [place], [address] RBC (Bld) [#/Vol] 4.58 10*6/uL Low 4.6-6.2 [facility] Comment on above: Order Comment: Order Date: 08/19/24 Order Info: 0667-1 - BMP Order Info: 28512-24 - PSA Performed By: #### L 501.9910 #### [facility] [address] [place], [address] RDW SD 38.9 fl Normal 35.1-43.9 [facility] Comment on above: Order Comment: Order Date: 08/19/24 Order Info: 0667-1 - BMP Order Info: 28512-24 - PSA Performed By: #### L 501.9910 #### [facility] [address] [place], [place], [address] WBC (Bld) [#/Vol] 8.0 10*3/uL Normal 4.4-11.0 [facility] Comment on above: Order Comment: Order Date: 08/19/24 Order Info: 0667-1 - BMP Order Info: 2856-06 - PSA Performed By: #### L 501.9910 #### [facility] [address] [place], [address] Carbon dioxide, total [Moles /volume] in Central venous bloodOrdered By: Perez Pop on 2025 CO2 [Moles/Vol] 22.1 mmol/L 21.0-32.0 [facility] Chloride assayOrdered By: Conor Pop on 2025 Chloride [Moles/Vol] 98 mmol/L 98-108 [facility] Eosinophil percentageOrdered By: Perez Pop on 2025 Eosinophils/100 WBC (Bld) 1.3 % 0-5 [facility] Erythrocyte distribution wid th ratioOrdered By: Perez Pop on 2025 Erythrocyte distribution width (RBC) [Ratio] 12.0 % 11.6-14.6 [facility] Erythrocyte distribution wid th standard deviationOrdered By: Perez Pop on 2025 Erythrocyte distribution width (RBC) [Ratio] 38.9 fl 35.1-43.9 [facility] Glomerular filtration rate ( GFR) estimation/1.73 sq m using serum, plasma, or whole bOrdered By: Perez Pop on 2025 GFR/1.73 sq M.predicted among non-blacks MDRD (S/P/Bld) [Vol rate/Area] 85 mL/min/{1.73_m2} >60 [facility] Comment on above: mL/min/1.73m2 CKD-EP I Creatinine Equation (2020) Hematocrit Auto (Bld) [Volum e fraction]Ordered By: Perez Pop on 2025 Hematocrit (Bld) [Volume fraction] 40.6 % 40-54 [facility] Hemoglobin measurementOrdere d By: Perez Pop on 2025 Hemoglobin (Bld) [Mass/Vol] 14.2 g/dL 13.0-16.5 [facility] Immature granulocytes/100 WB C Auto (Bld)Ordered By: Perez Pop on 2025 Immature granulocytes/100 WBC (Bld) 0.500 % 0.0-0.9 [facility] Comment on above: IG% - Immature Granu locytes (promyelocytes, myelocytes and metamyelocytes) > 1% indicates that a LEFT SHIFT is Present. MCV (mean corpuscular volume ) determinationOrdered By: Perez Pop on 2025 MCV (RBC) [Entitic vol] 88.6 fL 80-94 [facility] Mean corpuscular hemoglobin (MCH) determinationOrdered By: Perez Pop on 2025 MCH (RBC) [Entitic mass] 31.0 pg 27.0-32.0 [facility] Mean corpuscular hemoglobin concentration (MCHC) determinationOrdered By: Perez Pop on 2025 MCHC (RBC) [Mass/Vol] 35.0 g/dL 32-36 [facility] Mean platelet volume determi nationOrdered By: Perez Pop on 2025 Platelet mean volume (Bld) [Entitic vol] 10.8 fL 6.2-12.0 [facility] Monocyte percentageOrdered B y: Perez Pop on 2025 Monocytes/100 WBC (Bld) 7.7 % 0-10 [facility] Neutrophil percentageOrdered By: Perez Pop on 2025 Neutrophils/100 WBC (Bld) 76.3 % High 47-70 [facility] Nucleated red blood cell per centageOrdered By: Perez Pop on 2025 Nucleated RBC/100 WBC (Bld) [Ratio] 0 % 0-5 [facility] Platelet countOrdered By: Conor Pop on 2025 Platelets (Bld) [#/Vol] 366 10*3/uL 150-450 [facility] Potassium measurement (mass/ volume)Ordered By: Perez Pop on 2025 Potassium (Unsp spec) [Mass/Vol] 4.5 mmol/L 3.3-5.1 [facility] RBC Auto (Bld) [#/Vol]Ordere d By: Perez Pop on 2025 RBC (Bld) [#/Vol] 4.58 10*6/uL Low 4.6-6.2 [facility] Serum creatinine measurement (mass/volume)Ordered By: Perez Pop on 2025 Creatinine [Mass/Vol] 1.00 mg/dL 0.70-1.20 [facility] Serum glucose measurement (m ass/volume)Ordered By: Perez Pop on 2025 Glucose [Mass/Vol] 108 mg/dL High 70-99 [facility] Serum or plasma calcium hafsa urement (mass/volume)Ordered By: Perez Pop on 2025 Calcium [Mass/Vol] 8.7 mg/dL 7.6-11.0 [facility] Serum or plasma urea nitroge n measurement (mass/volume)Ordered By: Perez Pop on 2025 Urea nitrogen [Mass/Vol] 13 mg/dL 4-19 [facility] Sodium levelOrdered By: Perez Pop on 2025 Sodium [Moles/Vol] 134 mmol/L 133-145 [facility] White blood cell (WBC) count Ordered By: Perez Pop on 2025 WBC (Bld) [#/Vol] 8.0 10*3/uL 4.4-11.0 [facility] Absolute lymphocyte countOrd ered By: Prosper Adams on 02-01-2025 Lymphocytes Auto (Unsp spec) [#/Vol] 1.29 10*3/uL 0.83-4.51 [facility] Absolute neutrophil countOrd ered By: Prosper Adams on 02-01-2025 Neutrophils (Bld) [#/Vol] 7.3 10*3/uL 2.0-7.7 [facility] Alcohol, Blood (Medical)-Ser umon 02-01-2025 SERUM ETOH < 10.1 Normal <=10.0 [facility] Comment on above: Result Comment: This test is for medical purposes only. The legal definition of intoxication varies according to local law. Performed By: #### L 501.9100 #### [facility] [address] [place], [address] Anion gap in Serum or Plasma Ordered By: Prosper Adams on 02-01-2025 Anion gap [Moles/Vol] 13 mmol/L 5- [facility] Automated lymphocyte count a s percentage of total leukocytesOrdered By: Prosper Adams on 02-01-2025 Lymphocytes/100 WBC Auto (Unsp spec) 13.1 % Low 19- [facility] BUN/creatinine ratioOrdered By: Prosper Adams on 02-01-2025 Urea nitrogen/Creatinine [Mass ratio] 15.0 mg/mg 10- [facility] Basophil percentageOrdered B y: Prosper Adams on 02-01-2025 Basophils/100 WBC (Bld) 0.5 % 0-1 [facility] Bilirubin, totalOrdered By: Prosper Adams on 02-01-2025 Bilirubin [Mass/Vol] 0.85 mg/dL 0.00-1.30 [facility] CBC W/Diff, Automatedon Absolute Lymph 1.29 X10 3/uL Normal 0.83-4.51 [facility] Comment on above: Performed By: #### L 100.0100, L500.4050 #### [facility] [address] [place], [address] Absolute Neut 7.3 X10 3/uL Normal 2.0-7.7 [facility] Comment on above: Performed By: #### L 100.0100, L500.4050 #### [facility] [address] [place], [address] Basophils/100 WBC (Bld) 0.5 % Normal 0-1 [facility] Comment on above: Performed By: #### L 100.0100, L500.4050 #### [facility] [address] [place], [address] Eosinophils/100 WBC (Bld) 2.2 % Normal 0-5 [facility] Comment on above: Performed By: #### L 100.0100, L500.4050 #### [facility] [address] [place], [address] Erythrocyte distribution width (RBC) [Ratio] 11.8 % Normal 11.6-14.6 [facility] Comment on above: Performed By: #### L 100.0100, L500.4050 #### [facility] [address] [place], [address] Hematocrit (Bld) [Volume fraction] 41.0 % Normal 40-54 [facility] Comment on above: Performed By: #### L 100.0100, L500.4050 #### [facility] [address] [place], [address] Hemoglobin (Bld) [Mass/Vol] 14.4 g/dL Normal 13.0-16.5 [facility] Comment on above: Performed By: #### L 100.0100, L500.4050 #### [facility] [address] [place], [address] IG% 0.500 Normal 0.0-0.9 [facility] Comment on above: Result Comment: IG% - Immature Granulocytes (promyelocytes, myelocytes and metamyelocytes) > 1% indicates that a LEFT SHIFT is Present. Performed By: #### L 100.0100, L500.4050 #### [facility] [address] [place], [address] Lymphocytes/100 WBC (Bld) 13.1 % Low 19-41 [facility] Comment on above: Performed By: #### L 100.0100, L500.4050 #### [facility] [address] [place], [address] MCH (RBC) [Entitic mass] 30.8 pg Normal 27.0-32.0 [facility] Comment on above: Performed By: #### L 100.0100, L500.4050 #### [facility] [address] [place], [address] MCHC (RBC) [Mass/Vol] 35.1 g/dL Normal 32-36 [facility] Comment on above: Performed By: #### L 100.0100, L500.4050 #### [facility] [address] [place], [address] MCV (RBC) [Entitic vol] 87.6 fL Normal 80-94 [facility] Comment on above: Performed By: #### L 100.0100, L500.4050 #### [facility] [address] [place], [address] Monocytes/100 WBC (Bld) 9.1 % Normal 0-10 [facility] Comment on above: Performed By: #### L 100.0100, L500.4050 #### [facility] [address] [place], [address] Neutrophils/100 WBC (Bld) 74.6 % High 47-70 [facility] Comment on above: Performed By: #### L 100.0100, L500.4050 #### [facility] [address] [place], [address] Nucleated RBC (Bld) [#/Vol] 0 10*3/uL Normal 0-5 [facility] Comment on above: Performed By: #### L 100.0100, L500.4050 #### [facility] [address] [place], [address] Platelet mean volume (Bld) [Entitic vol] 9.8 fL Normal 6.2-12.0 [facility] Comment on above: Performed By: #### L 100.0100, L500.4050 #### [facility] [address] [place], [address] Platelets (Bld) [#/Vol] 250 10*3/uL Normal 150-450 [facility] Comment on above: Performed By: #### L 100.0100, L500.4050 #### [facility] [address] [place], [address] RBC (Bld) [#/Vol] 4.68 10*6/uL Normal 4.6-6.2 [facility] Comment on above: Performed By: #### L 100.0100, L500.4050 #### [facility] [address] [place], [address] RDW SD 37.8 fl Normal 35.1-43.9 [facility] Comment on above: Performed By: #### L 100.0100, L500.4050 #### [facility] [address] [place], [address] WBC (Bld) [#/Vol] 9.8 10*3/uL Normal 4.4-11.0 [facility] Comment on above: Performed By: #### L 100.0100, L500.4050 #### [facility] [address] [place], [address] Carbon dioxide, total [Moles /volume] in Central venous bloodOrdered By: Prosper Adams on 02-01-2025 CO2 [Moles/Vol] 21.3 mmol/L 21.0-32.0 [facility] Chloride assayOrdered By: Anshu Adams on 02-01-2025 Chloride [Moles/Vol] 95 mmol/L Low 98-108 [facility] Comprehensive Metabolic Prof ilon 02-01-2025 Albumin [Mass/Vol] 3.9 g/dL Normal 3.4-4.8 [facility] Comment on above: Performed By: #### L 100.0100, L500.4050 #### [facility] [address] [place], [address] Albumin/Globulin [Mass ratio] 1.3 {ratio} Normal 0.9-2.4 [facility] Comment on above: Performed By: #### L 100.0100, L500.4050 #### [facility] [address] [place], [address] ALK PHOS 47 U/L Normal 40-129 [facility] Comment on above: Performed By: #### L 100.0100, L500.4050 #### [facility] [address] [place], [address] ALT [Catalytic activity/Vol] 21 U/L Normal <=46 [facility] Comment on above: Performed By: #### L 100.0100, L500.4050 #### [facility] [address] [place], [address] AST [Catalytic activity/Vol] 28 U/L Normal <=37 [facility] Comment on above: Performed By: #### L 100.0100, L500.4050 #### [facility] [address] [place], [address] Bilirubin [Mass/Vol] 0.85 mg/dL Normal 0.00-1.30 [facility] Comment on above: Performed By: #### L 100.0100, L500.4050 #### [facility] [address] [place], [address] BUN/CRE 15.0 RATIO Normal 10-20 [facility] Comment on above: Performed By: #### L 100.0100, L500.4050 #### [facility] [address] [place], [address] Calcium [Mass/Vol] 8.6 mg/dL Normal 7.6-11.0 [facility] Comment on above: Performed By: #### L 100.0100, L500.4050 #### [facility] [address] [place], [address] Chloride [Moles/Vol] 95 mmol/L Low 98-108 [facility] Comment on above: Performed By: #### L 100.0100, L500.4050 #### [facility] [address] [place], [address] CO2 [Moles/Vol] 21.3 mmol/L Normal 21.0-32.0 [facility] Comment on above: Performed By: #### L 100.0100, L500.4050 #### [facility] [address] [place], [address] Creatinine [Mass/Vol] 1.30 mg/dL High 0.70-1.20 [facility] Comment on above: Performed By: #### L 100.0100, L500.4050 #### [facility] [address] [place], [address] ECRCL 51.25 ml/min Normal 50-250 [facility] Comment on above: Performed By: #### L 100.0100, L500.4050 #### [facility] [address] [place], [address] GAP 13 Normal 5-15 [facility] Comment on above: Performed By: #### L 100.0100, L500.4050 #### [facility] [address] [place], [address] GFR/1.73 sq M.predicted among non-blacks MDRD (S/P/Bld) [Vol rate/Area] 62 mL/min/{1.73_m2} Normal >60 [facility] Comment on above: Result Comment: mL/m in/1.73m2 CKD-EPI Creatinine Equation (2020) Performed By: #### L 100.0100, L500.4050 #### [facility] [address] [place], [address] Globulin (S) [Mass/Vol] 3.0 g/dL Normal 2.2-4.2 [facility] Comment on above: Performed By: #### L 100.0100, L500.4050 #### [facility] [address] [place], [address] Glucose [Mass/Vol] 121 mg/dL High 70-99 [facility] Comment on above: Performed By: #### L 100.0100, L500.4050 #### [facility] [address] [place], [address] Potassium [Moles/Vol] 3.9 mmol/L Normal 3.3-5.1 [facility] Comment on above: Performed By: #### L 100.0100, L500.4050 #### [facility] [address] [place], [address] Sodium [Moles/Vol] 130 mmol/L Low 133-145 [facility] Comment on above: Performed By: #### L 100.0100, L500.4050 #### [facility] [address] [place], [address] T PROT 6.9 g/dL Normal 5.9-8.4 [facility] Comment on above: Performed By: #### L 100.0100, L500.4050 #### [facility] [address] [place], [address] Urea nitrogen [Mass/Vol] 20 mg/dL High 4-19 [facility] Comment on above: Performed By: #### L 100.0100, L500.4050 #### [facility] [address] 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 Does not take any chronic medications currently is on antibiotic for dental infection. States yesterday he started having nausea vomiting and diarrhea. No hematemesis. No dysuria. No melena. Came in today because he was concerned he was getting dehydrated because he has had at least 5 episodes of vomiting in the last 24 hours and 5 episodes of diarrhea. Prior similar symptoms: Yes Recent Illness/Hospitaliza tion: No PFSH PFSH Medical History no medical history no medical history Home Medications ???Medication ???Instructions ???Recorded ???Last Taken ???Type ondansetron 4 mg disintegrating 4 mg PO Q6H PRN nausea and 5 Unknown Rx tablet vomiting #10 tabs Allergy/AdvReac Type Severity Reaction Status Date / Time No Known Allergies Allergy Verified 02/01/25 10:19 Social History Smoking Status: Never smoker ROS ROS ED ROS Narrative Nausea, vomiting and diarrhea. Denies dysuria. Denies abdominal pain. Constitutional Constitutional ED: Reports fever(s); Denies chills Eyes Eyes: Denies blurry vision ENT ENT ED: Denies ear pain Cardiovascular Cardiovascular: Denies chest pain Respiratory/Chest Respiratory/Chest: Denies cough Gastrointestinal Gastrointestinal: Reports diarrhea, nausea and vomiting; Denies abdominal pain, constipation or melena Genitourinary Genitourinary ED: Denies dysuria or hematuria Musculoskeletal Musculoskeletal: Denies arthralgias or back pain Integumentary Denies abscess Neurologic Neurologic: Denies headache(s) Psychiatric Psychiatric: Denies anxiety or depression Endocrine Endocrinology: Denies cold intolerance Hematologic/Lymphat ic Hematologic/Lymphat ic: Reports none Allergic/Immunologi c Allergic/Immunologi c ED: Denies mouth swelling, tongue swelling or urticaria EXAM Physical Exam Narrative Exam Narrative: Well-appearing 64-year-old male. Vital signs stable he does have a low-grade temperature 100.1. He does not look septic or toxic. He is in no distress. His pulse ox 100% on room air no hypoxia. H EENT exam pupils round reactive light. No trauma to his face or scalp. Mildly dry mucous membranes. Neck nontender no JVD. No lymphadenopathy. Back nontender. Lungs clear to auscultation bilaterally. Heart regular rhythm rate about 85 no murmur. Chest wall and ribs nontender. Abdomen soft, nontender, nondistended, normal bowel sounds without peritoneal signs. No localizing tenderness. No hernia or mass. No obstruction. Moving all 4 extremities. Nontender no deformity. Normal range of motion. 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 Normal dorsi plantarflexion. Neurologically he is awake and alert. Answering questions following commands. Const Vital Signs: 02/01/25 10:15 02/01/25 12:04 02/01/25 14:00 Temperature 100.1 F H 102.3 F H Temperature Source Oral Oral Pulse Rate 87 80 60 Respiratory Rate 18 18 Blood Pressure 123/74 H 119/57 L 100/66 Blood Pressure Mean 90 77 77 Pulse Ox 100 100 Oxygen Delivery Method Room Air Positive well nourished and well developed; Negative for cachectic, contractures or unkempt General Appearance ED: well developed and NAD; Negative for unkempt, cachectic, contractures, cyanotic, diaphoretic or pallor Nutritional Appearance: Negative for cachectic HEENT Reports dry mucous membranes Mouth ED: Yes dry mucous membranes Mouth: dry mucous membranes Eyes PERRL and EOMs intact bilaterally General Eye ED: Negative for pale conjunctiva or scleral icterus Neck no lymphadenopathy, supple and no JVD Chest Wall inspection of chest normal and palpation of chest normal Resp normal respiratory effort and clear to auscultation bilaterally Cardio regular rate, regular rhythm, S1 normal heart sound, S2 normal heart sound and no murmurs GI normal to inspection, nondistended, normoactive bowel sounds, non-tender, non-distended and no masses Auscultation: normoactive bowel sounds Palpation: soft; Negative for tender, guarding or rebound tenderness present Back/Spine no CVA tenderness General Back: Negative for CVA tenderness Cervical Spine: Negative for cervical spine tenderness Thoracic Spi (more content not included)... Normal [facility] Eosinophil percentageOrdered By: Prosper Adams on 02-01-2025 Eosinophils/100 WBC (Bld) 2.2 % 0-5 [facility] Erythrocyte distribution wid th ratioOrdered By: Prosper Adams on 02-01-2025 Erythrocyte distribution width (RBC) [Ratio] 11.8 % 11.6-14.6 [facility] Erythrocyte distribution wid th standard deviationOrdered By: Prosper Adams on 02-01-2025 Erythrocyte distribution width (RBC) [Ratio] 37.8 fl 35.1-43.9 [facility] Glomerular filtration rate ( GFR) estimation/1.73 sq m using serum, plasma, or whole bOrdered By: Prosper Adams on 02-01-2025 GFR/1.73 sq M.predicted among non-blacks MDRD (S/P/Bld) [Vol rate/Area] 62 mL/min/{1.73_m2} >60 [facility] Comment on above: mL/min/1.73m2 CKD-EP I Creatinine Equation (2020) Hematocrit Auto (Bld) [Volum e fraction]Ordered By: Prosper Adams on 02-01-2025 Hematocrit (Bld) [Volume fraction] 41.0 % 40-54 [facility] Hemoglobin measurementOrdere d By: Prosper Adams on 02-01-2025 Hemoglobin (Bld) [Mass/Vol] 14.4 g/dL 13.0-16.5 [facility] Immature granulocytes/100 WB C Auto (Bld)Ordered By: Prosper Adams on 02-01-2025 Immature granulocytes/100 WBC (Bld) 0.500 % 0.0-0.9 [facility] Comment on above: IG% - Immature Granu locytes (promyelocytes, myelocytes and metamyelocytes) > 1% indicates that a LEFT SHIFT is Present. Laboratory - Chemistry and C hemistry - challengeOrdered By: Prosper Adams on 02-01-2025 AST [Catalytic activity/Vol] 28 U/L <38 [facility] MCV (mean corpuscular volume ) determinationOrdered By: Prosper Adams on 02-01-2025 MCV (RBC) [Entitic vol] 87.6 fL 80-94 [facility] Mean corpuscular hemoglobin (MCH) determinationOrdered By: Prosper Adams on 02-01-2025 MCH (RBC) [Entitic mass] 30.8 pg 27.0-32.0 [facility] Mean corpuscular hemoglobin concentration (MCHC) determinationOrdered By: Prosper Adams on 02-01-2025 MCHC (RBC) [Mass/Vol] 35.1 g/dL 32-36 [facility] Mean platelet volume determi nationOrdered By: Prosper Adams on 02-01-2025 Platelet mean volume (Bld) [Entitic vol] 9.8 fL 6.2-12.0 [facility] Monocyte percentageOrdered B y: Prosper Adams on 02-01-2025 Monocytes/100 WBC (Bld) 9.1 % 0-10 [facility] Neutrophil percentageOrdered By: Prosper Adams on 02-01-2025 Neutrophils/100 WBC (Bld) 74.6 % High 47-70 [facility] Nucleated red blood cell per centageOrdered By: Prosper Adams on 02-01-2025 Nucleated RBC/100 WBC (Bld) [Ratio] 0 % 0-5 [facility] Platelet countOrdered By: Anshu Adams on 02-01-2025 Platelets (Bld) [#/Vol] 250 10*3/uL 150-450 [facility] Potassium measurement (mass/ volume)Ordered By: Prosper Adams on 02-01-2025 Potassium (Unsp spec) [Mass/Vol] 3.9 mmol/L 3.3-5.1 [facility] RBC Auto (Bld) [#/Vol]Ordere d By: Prosper Adams on 02-01-2025 RBC (Bld) [#/Vol] 4.68 10*6/uL 4.6-6.2 [facility] Serum creatinine measurement (mass/volume)Ordered By: Prosper Adams on 02-01-2025 Creatinine [Mass/Vol] 1.30 mg/dL High 0.70-1.20 [facility] Serum globulin measurementOr dered By: Prosper Adams on 02-01-2025 Globulin (S) [Mass/Vol] 3.0 g/dL 2.2-4.2 [facility] Serum glucose measurement (m ass/volume)Ordered By: Prosper Adams on 02-01-2025 Glucose [Mass/Vol] 121 mg/dL High 70-99 [facility] Serum or plasma alanine fatima otransferase (ALT) measurementOrdered By: Prosper Adams on 02-01-2025 ALT [Catalytic activity/Vol] 21 U/L <47 [facility] Serum or plasma albumin hafsa urement (mass/volume)Ordered By: Prosper Adams on 02-01-2025 Albumin [Mass/Vol] 3.9 g/dL 3.4-4.8 [facility] Serum or plasma albumin/glob ulin mass ratioOrdered By: Prosper Adams on 02-01-2025 Albumin/Globulin [Mass ratio] 1.3 {ratio} 0.9-2.4 [facility] Serum or plasma alkaline марина sphatase measurementOrdered By: Prosper Adams on 02-01-2025 ALP [Catalytic activity/Vol] 47 U/L 40-129 [facility] Serum or plasma calcium hafsa urement (mass/volume)Ordered By: Prosper Adams on 02-01-2025 Calcium [Mass/Vol] 8.6 mg/dL 7.6-11.0 [facility] Serum or plasma ethanol hafsa urement (mass/volume)Ordered By: Prosper Adams on 02-01-2025 Ethanol [Mass/Vol] mg/dL <10.1 [facility] Comment on above: This test is for med ical purposes only. The legal definition of intoxication varies according to local law. Serum or plasma urea nitroge n measurement (mass/volume)Ordered By: Prosper Adams on 02-01-2025 Urea nitrogen [Mass/Vol] 20 mg/dL High 4-19 [facility] Sodium levelOrdered By: Prosper Adams on 02-01-2025 Sodium [Moles/Vol] 130 mmol/L Low 133-145 [facility] Total proteinOrdered By: Francisco Adams on 02-01-2025 Protein [Mass/Vol] 6.9 g/dL 5.9-8.4 [facility] White blood cell (WBC) count Ordered By: Prosper Adams on 02-01-2025 WBC (Bld) [#/Vol] 9.8 10*3/uL 4.4-11.0 [facility] Anion gap in Serum or Plasma Ordered By: Hector Burgess on 09-07-2024 Anion gap [Moles/Vol] 11 mmol/L 11-07 [facility] BUN/creatinine ratioOrdered By: Hector Burgess on 09-07-2024 Urea nitrogen/Creatinine [Mass ratio] 14.5 mg/mg - [facility] Basic Metabolic Profile (BMP )on 09-07-2024 BUN/CRE 14.5 RATIO Normal - [facility] Comment on above: Order Comment: Order Date: 08/19/24 Order Info: 06 - BMP Order Info: 28512-24 - PSA Performed By: #### L 501.9910 #### [facility] [address] [place], [address] Calcium [Mass/Vol] 9.4 mg/dL Normal 7.6-11.0 [facility] Comment on above: Order Comment: Order Date: 08/19/24 Order Info: 666-06 - BMP Order Info: 28512-24 - PSA Performed By: #### L 501.9910 #### [facility] [address] [place], [address] Chloride [Moles/Vol] 104 mmol/L Normal 98-108 [facility] Comment on above: Order Comment: Order Date: 08/19/24 Order Info: 0667 - BMP Order Info: 28512-24 - PSA Performed By: #### L 501.9910 #### [facility] [address] [place], [address] CO2 [Moles/Vol] 25.0 mmol/L Normal 21.0-32.0 [facility] Comment on above: Order Comment: Order Date: 08/19/24 Order Info: 0667- - BMP Order Info: 28512-24 - PSA Performed By: #### L 501.9910 #### [facility] [address] [place], [address] Creatinine [Mass/Vol] 1.00 mg/dL Normal 0.70-1.20 [facility] Comment on above: Order Comment: Order Date: 08/19/24 Order Info: 06 - BMP Order Info: 2856-06 - PSA Performed By: #### L 501.9910 #### [facility] [address] [place], [address] GAP 11 Normal 5-15 [facility] Comment on above: Order Comment: Order Date: 08/19/24 Order Info: 666-06 - BMP Order Info: 2856-06 - PSA Performed By: #### L 501.9910 #### [facility] [address] [place], [address] GFR/1.73 sq M.predicted among non-blacks MDRD (S/P/Bld) [Vol rate/Area] 85 mL/min/{1.73_m2} Normal >60 [facility] Comment on above: Order Comment: Order Date: 08/19/24 Order Info: 666-06 - BMP Order Info: 2856-06 - PSA Result Comment: mL/m in/1.73m2 CKD-EPI Creatinine Equation (2020) Performed By: #### L 501.9910 #### [facility] [address] [place], [address] Glucose [Mass/Vol] 95 mg/dL Normal 70-99 [facility] Comment on above: Order Comment: Order Date: 08/19/24 Order Info: 06 - BMP Order Info: 2856-06 - PSA Performed By: #### L 501.9910 #### [facility] [address] [place], [address] Potassium [Moles/Vol] 4.1 mmol/L Normal 3.3-5.1 [facility] Comment on above: Order Comment: Order Date: 08/19/24 Order Info: 0667- - BMP Order Info: 28512-24 - PSA Performed By: #### L 501.9910 #### [facility] [address] [place], [place], [address] Sodium [Moles/Vol] 140 mmol/L Normal 133-145 [facility] Comment on above: Order Comment: Order Date: 08/19/24 Order Info: 0667-1 - BMP Order Info: 27012-24 - PSA Performed By: #### L 501.9910 #### [facility] [address] [place], [place], [id number] Urea nitrogen [Mass/Vol] 15 mg/dL Normal 4-19 [facility] Comment on above: Order Comment: Order Date: 08/19/24 Order Info: 0667-1 - BMP Order Info: 2856-06 - PSA Performed By: #### L 501.9910 #### [facility] [address] [place], [place], [address] Carbon dioxide, total [Moles /volume] in Central venous bloodOrdered By: Hector Burgess on 09-07-2024 CO2 [Moles/Vol] 25.0 mmol/L 21.0-32.0 [facility] Chloride assayOrdered By: An gel orrow on 09-07-2024 Chloride [Moles/Vol] 104 mmol/L 98-108 [facility] GFR/1.73 sq M.predicted chris g non-blacks MDRD (S/P/Bld) [Vol rate/Area]Ordered By: Hector [facility] on 09-07-2024 Estimated GFR (MDRD) Non-Af Amer 85 >60 [facility] Comment on above: mL/min/1.73m2 CKD-EP I Creatinine Equation (2020) PSA, total screeningOrdered By: Hector Burgess on 09-07-2024 Prostate Specific Antigen Screen 1.81 ng/mL 0.02-4.00 [facility] Comment on above: This test was [...] 09-07-2024 PSA,TOT SCREEN 1.81 ng/mL Normal 0.02-4.00 [facility] Comment on above: Order Comment: Order [...] values. Performed By: #### L [id number] #### [facility] [address] [place], [place], [address] Potassium (Unsp spec) [Mass/ Vol]Ordered By: Hector [facility] on 09-07-2024 Potassium [Moles/Vol] 4.1 mmol/L 3.3-5.1 [facility] Serum creatinine measurement (mass/volume)Ordered By: Hector [facility] on 09-07-2024 Creatinine [Mass/Vol] 1.00 mg/dL 0.70-1.20 [facility] Serum glucose measurement (m ass/volume)Ordered By: [facility] on 09-07-2024 Glucose [Mass/Vol] 95 mg/dL 70-99 [facility] Serum or plasma calcium hafsa urement (mass/volume)Ordered By: [facility] on 09-07-2024 Calcium [Mass/Vol] 9.4 mg/dL 7.6-11.0 [facility] Serum or plasma urea nitroge n measurement (mass/volume)Ordered By: Hector [facility] on 09-07-2024 Urea nitrogen [Mass/Vol] 15 mg/dL 4-19 [facility] Sodium levelOrdered By: [facility] 09-07-2024 Sodium [Moles/Vol] 140 mmol/L 133-145 [facility] Basophil percentageOrdered B y: Tiera Collazo on 08-07-2023 Chloride [Moles/Vol] 107 mmol/L 98-107 [facility] Cholesterol [Mass/Vol] 154 mg/dL <200 [facility] Comment on above: <200 mg/dL Desirable 200-240 mg/dL Borderline >240 mg/dL High Risk Glucose [Mass/Vol] 96 mg/dL 74-106 [facility] Potassium [Moles/Vol] 4.0 mmol/L 3.5-5.1 [facility] Sodium [Moles/Vol] 141 mmol/L 136-145 [facility] Triglyceride [Mass/Vol] 180 mg/dL <199 [facility] Comment on above: The drugs N-Acetylcy steine and Metamizole may falsely depress this assay.Serum Triglycerides Reference Interval Normal <150 mg/dL Borderline high 150 - 199 mg/dL High 200 - 499 mg/dL Very High > or = 500 mg/dL Laboratory - Chemistry and C hemistry - challengeOrdered By: Tiera Collazo on 08-07-2023 Cholesterol in HDL [Mass/Vol] 46 mg/dL >40 [facility] Comment on above: The drugs N-Acetylcy steine and Metamizole may falsely depress this assay. Reference Range HDL <40 mg/dL Low HDL Cholesterol HDL >or= 60 mg/dL High HDL Cholesterol Cholesterol in LDL [Mass/Vol] 72 mg/dL 0-130 [facility] CO2 [Moles/Vol] 29.0 mmol/L 21.0-32.0 [facility] Urea nitrogen/Creatinine [Mass ratio] 18.3 mg/mg 10-20 [facility] No Panel InformationOrdered By: Tiera Collazo on 08-07-2023 Estimated GFR (MDRD) Amer 106 mL/min >60 [facility] Comment on above: GFR Calc Estimated GFR (MDRD) Non-Af Amer 88 mL/min >60 [facility] Comment on above: Non- GFR Calc Prostate Specific Antigen Screen 1.83 ng/mL 0.00-4.00 [facility] Comment on above: This test was perfor med using the TPSA assay method for the[employer] chemistry system. Values obtained with differentassay methods cannot be used interchangably.When changing PSA assays in the course of monitoring apatient, additional sequential testing should be carriedout to confirm baseline values. VLDL Cholesterol 36 mg/dL 5-40 [facility] Serum or plasma calcium hafsa urement (mass/volume)Ordered By: Tiera Collazo on 08-07-2023 Calcium [Mass/Vol] 9.2 mg/dL 8.5-10.1 [facility] Serum or plasma creatinine m easurement (mass/volume)Ordered By: Tiera Collazo on 08-07-2023 Creatinine [Mass/Vol] 0.93 mg/dL 0.70-1.30 [facility] Comment on above: The validity of the calculated GFR & GFRAA in patients over 70 years has not been determined. Clinical correlation is essential. Serum or plasma urea nitroge n measurement (mass/volume)Ordered By: Tiera Collazo on 08-07-2023 Urea nitrogen [Mass/Vol] 17 mg/dL 7- [facility] Thin prep Papanicolaou smear with manual screeningOrdered By: Tiera Collazo on 08-07-2023 Thin prep Papanicolaou smear with manual screening 5 - [facility] Vital Signs Date Time Vital Sign Value Performing Clinician Faci lity 02-01-2025 15:10-0400 Body temperature 97.9 [degF] Dr. Prosper Adams MD Work Phone: [phone] [place] [address] 02-01-2025 15:10-0400 Diastolic blood pressure 66 mm[Hg] Dr. Prosper Adams MD Work Phone: [phone] [place] [address] 02-01-2025 15:10-0400 Heart rate 60 /min Dr. Prosper Adams MD Work Phone: [phone] [place] [address] 02-01-2025 15:10-0400 Respiratory rate 18 /min Dr. Prosper Adams MD Work Phone: [phone] [place] [address] 02-01-2025 15:10-0400 SaO2% (BldA) [Mass fraction] 100 % Dr. Prosper Adams MD Work Phone: [phone] [place] [address] 02-01-2025 15:10-0400 Systolic blood pressure 100 mm[Hg] Dr. Prosper Adams MD Work Phone: 0(058)[phone] [place] [address] 02-01-2025 10:15-0400 Body height 165.[address] Prosper Adams MD Work Phone: [phone] [place] [address] 02-01-2025 10:15-0400 Body mass index (BMI) [Ratio] 25 kg/m2 Dr. Prosper Adams MD Work Phone: [facility] 02-01-2025 10:15-0400 Body weight 68.[address] Prosper Adams MD Work Phone: [facility] Encounters Encounter Date Encounter Type Care Provider Facility Start: 02-12-2025 End: 02-12-[address] Prosper Adams MD Work Phone: [facility] [place] Start: 02-12-2025 End: 02-12-[address] Perez Pop MD -[facility] [place] Work Phone: Start: 02-12-2025 End: 02-12-2025 ambulatory Perez Pop Facility:[facility] Start: 2025 End: [address] Prosper Adams MD Work Phone: -Laboratory Start: 2025 End: [address] Perez Pop MD -Laboratory Work Phone: Start: 2025 End: 20[facility] Start: 02-01-2025 End: 02-01-2025 Emergency department patient visit Dr. Prosepr Adams MD Work Phone: -Emergency Department Work Phone: Start: 10-14-2024 ambulatory Tiera Collazo Facility: [facility] Start: 09-17-2024 Encounter for genera l adult medical examination without abnormal findings [facility] Start: 09-07-2024 End: 09-07-[address] Tiera Collazo MD Work Phone: [facility] Work Phone: Start: 09-07-2024 End: 09-07-2024 Patient encounter procedure [facility] NON DESTRUCTIVE TESTING TECHNICIAN-C -Laboratory Work Phone: Start: 09-07-2024 End: 09-07-2024 ambulatory [facility] Facility:[facility] Start: 08-07-2023 End: 08-07-2023 ambulatory [facility] Work Phone: Start: 08-07-2023 End: 08-07-2023 Patient encounter procedure [facility], [facility] Procedures Date Procedure Procedure Detail Performing Clinician Start: 2025 Measurement of Borre alfredo burgdorferi antibody Dr. Prosper Adams MD Work Phone: Comment on above: Lyme antibodies not detected. Reflex testing is notindicated.No laboratory evidence of infection with B. burgdorferi(Lyme disease). Negative results may occur in patientsrecently infected (less than or equal to 14 days) with B.burgdorferi. If recent infection is suspected, repeattesting on a new sample collected in 7 to 14 days isrecommended.Performed at: [facility] [id number] Director: Joel Ritchie PhD, Phone: [phone] Start: 02-01-[address] Prosper Adams MD Work Phone: Plan of Treatment Date Care Activity Detail Author Start: 02-01-2025 [facility] Patient Education ED Fever Contr ol (Adult) ED Gastroenteritis, Viral (Adult) [facility] Work Phone: Payers Date Payer Category Payer Self-pay 2024 Unknown [id number] Unknown [id number] Unknown [id number] [id number] Unknown [id number] Unknown [id number] [id number] [id number] Unknown [id number] [id number] [id number] Unknown [id number] [id number] [id number] Social History Date Type Detail Facility [facility] Work Phone: Start: 1960 Sex Assigned At Male [facility] if ever smoked [facility] Work Phone: Start: 09-17-2024 Sex Male (finding) [facility] Start: 02-01-2025 [facility] Never smoked tobacco (finding) [facility] Mental Status Date Assessment Result Facility 02-01-2025 Cognitive function Level Of Cons ciousness Awake;Alert;Appropriate;Follow s Commands [facility] Work Phone: Discharge summary 02-01-2025 Note Date & Type Note Facility 02-01-2025 Discharge summary [facility] Discharge summary 02-01-2025 Note Date & Type Note Facility 02-01-2025 Discharge summary Note Date/Time February 01, 2025 2:50pm [facility] Medical Records Department [address] [place] [address] Emergency Department Summary 02/01/25 MR#: [id number] Acct: [id number] Name: AUTUMN GRAJEDA Rep #:[id number] : 1960 64 From: Prosper Adams MD PCP: Hector Burgess NP NON DESTRUCTIVE TESTING TECHNICIAN-C Status:REG ER Location: ED HPI History of Present Illness Chief Complaint: General Illness Informant: patient Onset/Context/Timing Onset: Today and Yesterday Context: Gradual Onset Timing: Continuous Current Severity: Mild Maximum Severity: Mild Narrative Narrative: 64-year-old male denies any significant past medical or surgical history. Does not take any chronic medications currently is on antibiotic for dental infection. States yesterday he started having nausea vomiting and diarrhea. Nohematemesis. No dysuria. No melena. Came in today because he was concerned hewas getting dehydrated because he has had at least 5 episodes of vomiting in thelast 24 hours and 5 episodes of diarrhea. Prior similar symptoms: Yes Recent Illness/Hospitalization: No PFSH PFSH Medical History no medical history no medical history Home Medications ?Medication ?Instructions ?Recorded ?Last Taken ?Type ondansetron 4 mg disintegrating 4 mg PO Q6H PRN nausea and 02/01/25 Unknown Rx tablet vomiting #10 tabs Allergy/AdvReac Type Severity Reaction Status Date / Time No Known Allergies Allergy Verified 02/01/25 10:19 Social History Smoking Status: Never smoker ROS ROS ED ROS Narrative Nausea, vomiting and diarrhea. Denies dysuria. Denies abdominal pain. Constitutional Constitutional ED: Reports fever(s); Denies chills Eyes Eyes: Denies blurry vision ENT ENT ED: Denies ear pain Cardiovascular Cardiovascular: Denies chest pain Respiratory/Chest Respiratory/Chest: Denies cough Gastrointestinal Gastrointestinal: Reports diarrhea, nausea and vomiting; Denies abdominal pain, constipation or melena Genitourinary Genitourinary ED: Denies dysuria or hematuria Musculoskeletal Musculoskeletal: Denies arthralgias or back pain Integumentary Denies abscess Neurologic Neurologic: Denies headache(s) Psychiatric Psychiatric: Denies anxiety or depression Endocrine Endocrinology: Denies cold intolerance Hematologic/Lymphatic Hematologic/Lymphatic: Reports none Allergic/Immunologic Allergic/Immunologic ED: Denies mouth swelling, tongue swelling or urticaria EXAM Physical Exam Narrative Exam Narrative: Well-appearing 64-year-old male. Vital signs stable he does have a low-grade temperature 100.1. He does not look septic or toxic. He is in no distress. His pulse ox 100% on room air no hypoxia. H EENT exam pupils round reactive light. No trauma to his face or scalp. Mildly dry mucous membranes. Neck nontender no JVD. No lymphadenopathy. Back nontender. Lungs clear to auscultation bilaterally. Heart regular rhythm rate about 85 no murmur. Chest wall and ribs nontender. Abdomen soft, nontender, nondistended, normal bowel sounds without peritoneal signs. No localizing tenderness. No hernia or mass. No obstruction. Moving all 4 extremities. Nontender no deformity. Normal range of motion. 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 Normal dorsi plantarflexion. Neurologically he is awake and alert. Answering questions following commands. Const Vital Signs: 02/01/25 10:15 02/01/25 12:04 02/01/25 14:00 Temperature 100.1 F H 102.3 F H Temperature Source Oral Oral Pulse Rate 87 80 60 Respiratory Rate 18 18 Blood Pressure 123/74 H 119/57 L 100/66 Blood Pressure Mean 90 77 77 Pulse Ox 100 100 Oxygen Delivery Method Room Air Positive well nourished and well developed; Negative for cachectic, contracturesor unkempt General Appearance ED: well developed and NAD; Negative for unkempt, cachectic, contractures, cyanotic, diaphoretic or pallor Nutritional Appearance: Negative for cachectic HEENT Reports dry mucous membranes Mouth ED: Yes dry mucous membranes Mouth: dry mucous membranes Eyes PERRL and EOMs intact bilaterally General Eye ED: Negative for pale conjunctiva or scleral icterus Neck no lymphadenopathy, supple and no JVD Chest Wall inspection of chest normal and palpation of chest normal Resp normal respiratory effort and clear to auscultation bilaterally Cardio regular rate, regular rhythm, S1 normal heart sound, S2 normal heart sound and no murmurs GI normal to inspection, nondistended, normoactive bowel sounds, non-tender, non-distended and no masses Auscultation: normoactive bowel sounds Palpation: soft; Negative for tender, guarding or rebound tenderness present Back/Spine no CVA tenderness General Back: Negative for CVA tenderness Cervical Spine: Negative for cervical spine tenderness Thoracic Spine / Upper Back: Negative for thoracic spinal tenderness Lumbar Spine / Lower Back: Negative for lumbar spinal tenderness Extremity normal to inspection General Extremety ED: Negative for edema or tenderness General Extremity: Negative for edema Neuro oriented x3 and CN's II-XII intact bilaterally Sensorium / Orientation: alert Motor Exam: strength 5/5 throughout Psych mental status grossly normal Appearance: Negative for unkempt Skin no rashes or lesions noted, no wounds and skin turgor normal General Skin Exam: Negative for jaundice or pallor Lesions: No lesion noted Rashes: No rashes noted Trauma: Negative for abrasion MDM MDM MDM Narrative Medical decision making narrative: 64-year-old male with nausea, vomiting and diarrhea suspect viral gastroenteritis. He will be treated with IV fluids for hydration. Screening labs. He does not need any imaging he is got no abdominal tenderness or pain. Repeat exam patient is doing well 12:56 PM. He did develop a fever here of 102.3. He has been treated with Tylenol. I suspect he has a viral gastroenteritis. His abdomen remains benign. Patient states he is feeling better. Initially was able to drink fluids then the nurse gave him Tylenol for his fever he threw that up soaring give him additional dose of Zofran another p.o. challenge and see if he can hold down fluids and treated as a viral gastroenteritis. Currently his abdomen is completely nontender. Repeat exam patient is doing well at 2:48 PM. He did pass a p.o. challenge. His abdomen remains benign. He is comfortable being discharged home. Treated as a viral gastroenteritis. Fluids and rest. Zofran. Motrin and Tylenol. History & Record Review Discussion w/independent historian: Patient Additional record(s) reviewed:: Prior inpatient record, Prior outpatient record,Prior ED visit and Prior labs Lab Data Attestation: I reviewed the patient's lab results. Lab results narrative: CBC is normal. White count of 9. H&H 14 and 41. Platelets 250. Chemistry shows sodium 130. Gap 13. BUN and creatinine of 21.3. Glucose 121. Liver enzymes unremarkable. Alcohol negative. Labs: Laboratory Results - last 24 hr 02/01/25 10:35 WBC 9.8 RBC 4.68 Hgb 14.4 Hct 41.0 MCV 87.6 MCH 30.8 MCHC 35.1 RDW Std Deviation 37.8 RDW Coeff of Becky 11.8 Plt Count 250 MPV 9.8 Immature Gran % (Auto) 0.500 Neut % (Auto) 74.6 H Lymph % (Auto) 13.1 L [place] % (Auto) 9.1 Eos % (Auto) 2.2 Baso % (Auto) 0.5 Absolute Neuts (auto) 7.3 Absolute Lymphs (auto) 1.29 Nucleated RBC % 0 Sodium 130 L Potassium 3.9 Chloride 95 L Carbon Dioxide 21.3 Anion Gap 13 BUN 20 H Creatinine 1.30 H Estim Creat Clear Calc 51.25 Est GFR (MDRD) Non-Af 62 BUN/Creatinine Ratio 15.0 Glucose 121 H Calcium 8.6 Total Bilirubin 0.85 AST 28 ALT 21 Alkaline Phosphatase 47 Total Protein 6.9 Albumin 3.9 Globulin 3.0 Albumin/Globulin Ratio 1.3 Ethyl Alcohol < 10.1 Discharge Plan Triage Chief Complaint: General Illness Other Complaint: Nausea/Vomiting/Diarrhea ED Provider: Prosper Adams Dx/Rx/DC Orders Clinical Impression: Viral gastroenteritis, Fever, Acute hyponatremia Instructions: ED Fever Control (Adult), ED Gastroenteritis, Viral (Adult) Prescriptions: New ondansetron 4 mg tablet,disintegrating 4 mg PO Q6H PRN (Reason: nausea and vomiting) Qty: 10 0RF Primary Care Provider: Hector Burgess NP Referrals: Tiera Collazo MD [[facility] Staff - Heat Treat Furnace Operator] - 1-2 Days if not improving Activity Restrictions/Additional Instructions: Plenty of fluids and rest. Slowly increase your diet as tolerated. Tylenol and/or Motrin for any fever. Zofran as needed for nausea which you may swallow or let it dissolve under your tongue. Follow-up with your doctor if not improving. Return to the emergency departmentif you are feeling worse or unable to keep fluids down. Print Language: Jordanian Disposition Disposition: Home, Self Care What to do if you have Problems For any increased pain, shortness of breath, bleeding, nausea or vomiting, chestpain, or any unexpected problems, contact your Primary Care Provider. Call [facility] ([phone]) or report to the closest Emergency Room. Call 911 if necessary. 02/01/25 1450 <Electronically signed by Prosper Adams MD> Cosigner Signature (if applicable): CC: Hector CRISTINA NON DESTRUCTIVE TESTING TECHNICIAN-C Aditya ~ Signed [facility] Work Phone: Evaluation note Note Date & Type Note Facility Evaluation note No assessment information availa ble [facility] Work Phone: Hospital Discharge instructions Note Date & Type Note Facility Hospital Discharge instructions Additional Instructions Plenty of fluids and rest. Slowly increase your diet as tolerated. Tylenol and/or Motrin for any fever. Zofran as needed for nausea which you may swallow or let it dissolve under your tongue. Follow-up with your doctor if not improving. Return to the emergency department if you are feeling worse or unable to keep fluids down. [facility] Work Phone: Reason for referral (narrative) Note Date & Type Note Facility Reason for referral (narrative) No reason for referral information available [facility] Work Phone: Chief Complaint and Reason for Visit Chief Complaint Admit Date EORDERS September 07, 2024 7:0 6am Chief Complaint Admit Date n/v/d February 01, 2025 10: 14am Chief Complaint Admit Date n/v/d February 01, 2025 10: 14am LABS 2025 1: 47pm Advance Directives No Advanced Directives Records Found Advance Directive Response Recorded Date/ Time Do you have a Healthcare Power of Setter Out? No February 01, 2025 10:37am Summary Purpose Family History No Family History Records Found Additional Source Comments Care Teams (unrecognized sec tion and content) Team Status: Active Member Role Status Dates Dr. Tiera Collazo MD Primary Care Provider Active Team Status: Inactive Member Role Status Dates Dr. Tiera Collazo MD [facility], [facility] Active Team Status: Inactive Member Role Status Dates Dr. Tiera Collazo MD Primary Care Provider Active Start: September 07, 2024 End: September 07, 2024 Hector Burgess NON DESTRUCTIVE TESTING TECHNICIAN, NON DESTRUCTIVE TESTING TECHNICIAN-C Attending Provider Active Start: September 07, 2024 End: September 07, 2024 Hector Burgess NON DESTRUCTIVE TESTING TECHNICIAN, NON DESTRUCTIVE TESTING TECHNICIAN-C Referring Provider Active Start: September 07, 2024 End: September 07, 2024 Team Status: Active Member Role/Relationship Status Dates Hector Burgess NON DESTRUCTIVE TESTING TECHNICIAN, NON DESTRUCTIVE TESTING TECHNICIAN-C Primary Care Provider Active Team Status: Inactive Member Role/Relationship Status Dates Dr. Prosper Adams MD Emergency Provider Active S tart: February 01, 2025 End: February 01, 2025 Hecotr Burgess NON DESTRUCTIVE TESTING TECHNICIAN, NON DESTRUCTIVE TESTING TECHNICIAN-C Primary Care Provider Active Start: February 01, 2025 End: February 01, 2025 Team Status: Active Member Role/Relationship Status Dates Dr. Perez Pop MD Primary Care Provider Active Team Status: Inactive Member Role/Relationship Status Dates Dr. Prosper Adams MD Attending Provider Active S tart: February 01, 2025 End: February 01, 2025 Dr. Prosper Adams MD Emergency Provider Active S tart: February 01, 2025 End: February 01, 2025 Hector Burgess NON DESTRUCTIVE TESTING TECHNICIAN, NON DESTRUCTIVE TESTING TECHNICIAN-C Primary Care Provider Active Start: February 01, 2025 End: February 01, 2025 Team Status: Inactive Member Role/Relationship Status Dates Hector Burgess NON DESTRUCTIVE TESTING TECHNICIAN, NON DESTRUCTIVE TESTING TECHNICIAN-C Primary Care Provider Active Start: 2025 End: 2025 Dr. Perez Pop MD Attending Provider Active Start: 2025 End: 2025 Dr. Perez Pop MD Referring Provider Active Start: 2025 End: 2025 Team Status: Inactive Member Role/Relationship Status Dates Dr. Perez Pop MD Primary Care Provider Active Start: February 12, 2025 End: February 12, 2025 Dr. Perez Pop MD Attending Provider Active Start: February 12, 2025 End: February 12, 2025 Dr. Perez Pop MD Referring Provider Active Start: February 12, 2025 End: February 12, 2025 Goals (unrecognized section and content) Goals may be documented in a n alternate sectionGoals may be documented in an alternate sectionGoals may be documented in an alternate sectionGoals may be documented in an alternate sectionGoals may be documented in an alternate section (unrecognized sect ion and content) No Status Records Found INFORMATION SOURCE (unrecogn ized section and content) DATE CREATED AUTHOR 02/20/2025 [facility] FOR RECORDS PERTAINING TO PATIENTS WHO ARE [...] BE BASED ON THE PRIMARY CLINICAL RECORDS. [employer] provides no warranty or guarantee of the accuracy or completeness of information in this document.
[2025-03-29 08:10] LABS: Hematocrit 45.5 % (40-54); Hemoglobin 15.7 g/dL (13.0-16.5); Immature Granulocytes Count 0.020 X10^3/uL (0.0-0.0); Mean Corp Hgb Conc 34.5 g/dL (32-36); Mean Corpuscular Volume 91.0 fL (80-94); Mean Platelet Vol. 10.0 fl (6.2-12.0); NRBC Flagged by Analyzer 0 % (0-5); Platelet Count 251 K/mm3 (150-450); RBC Distribution Width CV 12.7 % (11.6-14.6); RBC Distribution Width SD 42.0 fl (35.1-43.9); Red Blood Count 5.00 M/mm3 (4.6-6.2); White Blood Count 5.9 K/mm3 (4.4-11.0)
[2025-03-29 09:35] LABS: AST(SGOT) 26 U/L (<=37); Alanine Aminotransfer ALT/SGPT 25 U/L (<=46); Albumin, Serum 4.6 g/dL (3.4-4.8); Alkaline Phosphatase 61 U/L (40-129); Anion Gap 10 (5-15); BUN 12 mg/dL (4-19); BUN/Creat Ratio 13.3 RATIO (10-20); Calcium,Total 9.3 mg/dL (7.6-11.0); Carbon Dioxide 27.2 mmol/L (21.0-32.0); Chloride 103 mmol/L (98-108); Follicle Stimulating Hormone 14.6 mIU/mL; Globulin 2.4 g/dL (2.2-4.2); Glucose 98 mg/dL (70-99); Potassium 4.3 mmol/L (3.3-5.1)
[2025-04-02 12:09] LABS: Testosterone, % Free 2.05 % (1.50-4.20); Testosterone, Free 10.31 ng/dL (5.00-21.00)
== END | disposition home or self-care (01) ==
PROVIDERS: PCP Family Medicine; Referring Provider Family Medicine; Visit Provider Family Medicine
DX: R79.89 Other specified abnormal findings of blood chemistry (principal); R53.83 Other fatigue
CPT/HCPCS: 80053; 82670; 83001; 83002; 84270; 84402; 84403; 85025